=== PATIENT | female | born 1960 | race Caucasian/White ===

== ENCOUNTER 2020-07-10 13:28 | Emergency (ER) | payer MEDICARE, BC, OTHER, SELFPAY ==
[2020-07-10 13:57] VITALS: BP 176/95; PULSE 99; RESP 14; TEMP 37.2; O2SAT 95; BMI 41.1
--- NOTE | 2020-07-10 14:06 | W.ED.BACK ---
HPI - Back Pain/Injury General: Chief Complaint: Back Pain/Injury Stated Complaint: URINARY PAIN Time Seen by Provider: 07/10/20 14:01 History of Present Illness: HPI Narrative: Complaint of right flank pain for the last few days. Said she been going to bathroom more often has some dysuria occasionally. Also had recent back surgery where she had plate from lumbar to thoracic T12 placed. Said this pain is similar to kidney problems she has had and also to her lumbar problems she denies any pain rating down her leg but he says he has had numbness in her leg and so she says she cannot really tell if if that is worsening or not. MD elicited complaint: back pain Pertinent past history: prior back pain and back surgery Onset (ago): day(s) Timing: constant and progressively worsening Severity: moderate Quality: sharp and aching Location: right flank Relieving factors: immobilization Associated symptoms: Reports urinary frequency; Deny abdominal pain, chills, fever(s), nausea or vomiting Review of Systems Const: Denies: fever(s), chills or body aches Eyes: Denies: change in vision or blurry vision ENMT: Denies: throat pain or nasal congestion Card: Denies: chest pain or dyspnea on exertion Resp: Denies: dyspnea, productive cough or non-productive cough GI: Denies: abdominal pain, nausea or vomiting : Reports: flank pain (Right) Musc: Denies: extremity pain Skin/Breast: Denies: rash Neuro: Denies: headache(s) Psych: Denies: anxiety or depression Jermaine/Lymph: Denies: easy bruising Physical Exam Const: COMMON NORMALS: no acute distress, average body habitus and patient oriented x3 HENMT: COMMON NORMALS: normocephalic HEAD & SCALP: normal to inspection and normocephalic FACE & SINUS: normal facial exam Eye: COMMON NORMALS: conjunctivae normal GENERAL EYE: appearance normal, both eyes and all related structures CONJUNCTIVA: Yes conjunctivae normal Neck/C-Spine: COMMON NORMALS: no JVD Chest: COMMONS NORMALS: normal inspection of the chest Resp: COMMON NORMALS: normal respiratory effort and clear to auscultation bilaterally AUSCULTATION: clear to auscultation bilaterally Cardio: COMMON NORMALS: no JVD, regular rate and regular rhythm RATE: regular rate RHYTHM: regular rhythm GI: COMMON NORMALS: Normal to inspection, nondistended, normoactive bowel sounds present Back/Pelvis: OTHER: Tenderness to the right flank right sciatic area Extremity: COMMON NORMALS: normal to inspection and full ROM Neuro: COMMON NORMALS: patient oriented x3 Course Vital Signs: Vital signs: Vital Signs Temperature 99.0 F 07/10/20 13:57 Pulse Rate 99 07/10/20 13:57 Respiratory Rate 14 07/10/20 13:57 Blood Pressure 176/95 07/10/20 13:57 Pulse Oximetry 95 07/10/20 13:57 MDM - Back Pain/Injury MDM Narrative: Medical decision making narrative: Patient had recent back surgery ran a UA in case it might of been a kidney stone or infection UA come back negative patient thinks is helping from her chronic back problems she has now with her symptoms being similar to prior problems. Patient will and try steroid to help with lumbar discomfort that she is experiencing. Patient will follow-up with her surgeon. Lab Data: Labs: Lab Results 07/10/20 Range/Units 14:36 Urine Color Yellow (Yellow) Urine Appearance Clear (CLEAR) Urine pH 7 (5-7) Ur Specific Gravit y 1.010 (1.005-1.030) Urine Protein Neg (Negative) Urine Glucose (UA) Norm (Normal) Urine Ketones Negative (Negative) Urine Blood Neg (Negative) Urine Nitrate Negative (Negative) Urine Bilirubin Neg (Negative) Urine Urobilinogen Norm (Negative) mg/dL Ur Leukocyte Divine ase Negative (Negative) Discharge Plan Discharge Patient Disposition: Home Clinical Impression: Lumbar radiculopathy Condition: Stable Prescriptions: New prednisone 20 mg tablet 20 mg PO DAILY 11 Days Qty: 11 RF: 0 Discharge Orders: Discharge Order (Routine); Ordered 07/10/20 Ordered By: Jagjit Crump Referrals: Dank oCnnors DO [Family Provider] - Discharge Diet: Usual diet Discharge Activity: Increase activity as tolerated Patient Instructions: Lumbar Radiculopathy (ED) Activity Restrictions/Additional Instructions: Follow-up with medical provider as directed. Take medications as prescribed. Return to the ER or your medical provider if condition worsens. Please read and understand discharge instructions. If any questions ask please. Follow-up with your surgeon if problems continue Coding Level of Care Code ED Mentally Retarded Teacher for John Fwd Exam Comprehensive
[2020-07-10 14:59] LABS: Add Urine Microscopic? NO
[2020-07-10 15:08] LABS: Bilirubin Urine Neg (Negative); Blood Urine Neg (Negative); Glucose Urine UA Norm (Normal); Ketones Urine Negative (Negative); Leukocyte Esterase Urine Negative (Negative); Nitrate Urine Negative (Negative); Protein Urine Neg (Negative); Urine Appearance Clear (CLEAR); Urine Color Yellow (Yellow); Urobilinogen Urine Norm (Negative); pH Urine 7 (5-7)
[2020-07-10] MEDS: predniSONE 20 mg Tablet 60 MG PO (15:27)
[2020-07-10 15:31] VITALS: BP 169/81; PULSE 94; RESP 18; O2SAT 96
[2020-07-10 15:32] VITALS: BP 169/81; PULSE 94; RESP 18; O2SAT 96
== END 2020-07-10 15:35 | disposition home or self-care (01) ==
PROVIDERS: Emergency Provider Nurse Practitioner Family; Family Provider Family Medicine
DX: M54.16 Radiculopathy, lumbar region (principal)
CPT/HCPCS: 12345; 81003; 99283; J7512

== ENCOUNTER 2021-01-24 10:29 | Outpatient (CLI) | payer MEDICARE, SELFPAY ==
--- NOTE | 2021-01-24 10:33 | MM_ITS ---
WS: [id number] BILATERAL DIGITAL SCREENING MAMMOGRAPHY WITH CAD CLINICAL INFORMATION: SCREENING HISTORY: Screening mammogram. No current complaints. COMPARISON: TECHNIQUE: Bilateral CC and MLO views. FINDINGS: Scattered fibroglandular densities bilaterally. No suspicious focal mass, asymmetry, calcifications, or architectural distortion. No evidence of malignancy. Punctate and lucent centered calcifications. MM/[place] [id number] IMPRESSION: BI-RADS: 2-Benign FOLLOW UP: 1 Year Follow-up Recommend return to annual screening mammography.
== END 2021-01-24 10:30 | disposition home or self-care (01) ==
LOC: RADSHAW 10:32
PROVIDERS: Family Provider Family Medicine; PCP Family Medicine; Visit Provider Family Medicine
DX: Z12.31 Encounter for screening mammogram for malignant neoplasm of breast (principal)
CPT/HCPCS: 77067

== ENCOUNTER 2021-09-26 13:03 | Outpatient (CLI) | payer MEDICARE, SELFPAY ==
--- NOTE | 2021-09-26 13:08 | XR_ITS ---
WS: [id number] Abdomen series: PA CHEST AND 2 VIEWS OF THE ABDOMEN HISTORY: DYSURIA COMPARISON: None available. Lungs are clear and well aerated. Heart size is normal. No free air beneath the diaphragm. Mild diffuse fecal retention and constipation. No obstruction. No free air. Round calcifications in t he RIGHT upper abdomen are probably gallstones. There is fusion hardware at the thoracolumbar spine. Fusion at the thoracolumbar junction is new sinc e 06/04/2018. No hardware fractures are identified. Severe narrowing of the LEFT hip joint with subchon dral cystic changes and hypertrophic bone formation. XR/XR acute abdomen series [id number] IMPRESSION: 1. No GI tract obstruction. 2. Mild diffuse constipation. 3. Cholelithiasis. 4. Prior fusion hardware throughout the thoracolumbar spine. 5. Severe LEFT hip joint osteoarthritis.
== END 2021-09-26 13:04 | disposition home or self-care (01) ==
PROVIDERS: PCP Family Medicine; Visit Provider Clinical Nurse Specialist Adult Health
DX: R30.0 Dysuria (principal); K59.00 Constipation, unspecified; K80.20 Calculus of gallbladder without cholecystitis without obstruction; M16.12 Unilateral primary osteoarthritis, left hip
CPT/HCPCS: 74022

== ENCOUNTER → 2021-12-12 11:20 | Outpatient (BNVA) | payer MEDICARE, SELFPAY | PROVIDERS: PCP Family Medicine; Visit Provider Nurse Practitioner Family | DX: N39.41 Urge incontinence (principal); N39.0 Urinary tract infection, site not specified | CPT/HCPCS: 81003; 87086 ==

== ENCOUNTER → 2022-01-09 09:48 | Outpatient (BNVA) | payer MEDICARE, SELFPAY | PROVIDERS: PCP Family Medicine; Referring Provider Family Medicine; Visit Provider Specialist | DX: M16.0 Bilateral primary osteoarthritis of hip (principal) | CPT/HCPCS: 73522 ==

== ENCOUNTER → 2022-04-10 09:21 | Outpatient (BNVA) | payer MEDICARE, SELFPAY | PROVIDERS: PCP Family Medicine; Visit Provider Specialist | DX: M16.0 Bilateral primary osteoarthritis of hip (principal); E66.01 Morbid (severe) obesity due to excess calories; Z68.41 Body mass index [BMI] 40.0-44.9, adult; M25.552 Pain in left hip | CPT/HCPCS: 99213 ==

== ENCOUNTER → 2022-06-13 13:15 | Outpatient (BNVA) | payer MEDICARE, SELFPAY | PROVIDERS: PCP Family Medicine; Visit Provider Urology | DX: N39.0 Urinary tract infection, site not specified (principal); R32 Unspecified urinary incontinence; Z53.9 Procedure and treatment not carried out, unspecified reason | CPT/HCPCS: 51798 ==

== ENCOUNTER 2022-06-28 07:53 | Outpatient (CLI) | payer MEDICARE, SELFPAY ==
--- NOTE | 2022-06-28 11:00 | FL_ITS ---
WS: [id number] Exam: FL barium swallow [id number] Date/Time of Exam: 06/28/2022 8:30 AM Reason For Exam: DYSPHAGIA Fluoroscopy time: 2.3 minutes # of spot films: 22 Swallowing function at the level of oropharynx was normal. There is mild extrinsic compression along the posterior margin of the cervical esophagus at the C6-7 level secondary to anterior osteophytes of the C-spine. This causes mild to moderate luminal narrowing. No intrinsic esophageal masses are seen . No sign of stricture. Normal esophageal motility was noted. No hiatal hernia or reflux. FL/FL barium swallow [id number] IMPRESSION: 1. Extrinsic compression along the posterior cervical esophagus at about the le henny of the C6-7 secondary to anterior osteophytes. This causes mild to moderate luminal narrowing. 2. No sign of intrinsic esophageal mass or stricture. Normal motility.
== END 2022-06-28 07:54 | disposition home or self-care (01) ==
PROVIDERS: PCP Family Medicine; Visit Provider Family Medicine
DX: R13.10 Dysphagia, unspecified (principal)
CPT/HCPCS: 74220

== ENCOUNTER → 2022-07-11 07:46 | Outpatient (BNVA) | payer MEDICARE, SELFPAY | PROVIDERS: PCP Family Medicine; Visit Provider Specialist | DX: G62.89 Other specified polyneuropathies (principal) | CPT/HCPCS: 95909; 95911 ==

== ENCOUNTER 2022-08-05 06:54 | Outpatient (CLI) | payer MEDICARE, SELFPAY ==
--- NOTE | 2022-08-05 | NM_ITS ---
WS: [id number] THREE-PHASE BONE SCAN HISTORY: BONE PAIN, chronic LEFT hip pain. COMPARISON: Radiographs 08/05/2022 Patient is is injected with 25.6 mCi Tc99m HDP intravenously. Immediate angiographic phase imaging is performed over the area of concern. Static blood pool imaging also performed. Two-hour whole-body sc intigrams performed in anterior and posterior projections. Additional large field of view imaging sub mitted as necessary. 3 phase bone scan is centered over the pelvis. Angiographic and blood pool phases are normal. There i s no increased uptake or vascularity involving the LEFT hip. On the delayed images there is moderate increased uptake involving the LEFT femoral head and acetabul um. Joint space narrowing with increased uptake involving the RIGHT knee. Photopenic defect at the LEFT k nee from prior arthroplasty. Very small amount of periprosthetic increased uptake at the LEFT knee. N o loosening was evident on the radiograph of 09/15/2018. No LEFT knee pain was provided as history. T horacolumbar scoliosis. Mild facet joint arthritis along the RIGHT curvature of the lumbar spine near L3. Normal soft tissue uptake. Kidneys are both identified. NM/NM bone 3 phase [id number] IMPRESSION: 1. No evidence for osteomyelitis involving the LEFT hip. Increased delayed upt naomi most consistent with advanced osteoarthritis. This is concordant with the r adiographs that were also obtained of the hip on the same day. Severe LEFT hip osteoarthritis. 2. Mild RIGHT knee osteoarthritis. 3. Prior prosthesis LEFT knee. Very slight increased uptake around the LEFT kn ee prosthesis. May be early changes of loosening. No history of knee pain was p rovided.
--- NOTE | 2022-08-05 | XR_ITS ---
WS: [id number] Pelvis and LEFT HIP HISTORY: PAIN IN LEFT HIP. Radiographs performed in conjunction with the bone scan performed on the day. COMPARISON: 01/09/2022 LEFT hip: Severe LEFT hip joint arthritis. Complete loss of the joint space. Remodeling with flatteni ng of the LEFT femoral head. There are subchondral cystic changes on both sides of the joint space. H ypertrophic osteophytes from the acetabulum. Similar findings at the RIGHT hip joint but to a much lesser extent. Fusion hardware in the lower lum bar spine. Mild SI joint arthritis. XR/XR hip LT 2-3V wo/w pel* [id number] IMPRESSION: 1. Severe LEFT hip joint osteoarthritis with complete loss of joint space and remodeling. 2. No fracture.
== END 2022-08-05 06:55 | disposition home or self-care (01) ==
LOC: RAD 06:56
PROVIDERS: PCP Family Medicine; Visit Provider Specialist
DX: M16.0 Bilateral primary osteoarthritis of hip (principal); M17.11 Unilateral primary osteoarthritis, right knee; Z96.652 Presence of left artificial knee joint
CPT/HCPCS: 73502; 78315; A9561

== ENCOUNTER → 2022-10-01 14:24 | Outpatient (BNVA) | payer MEDICARE, SELFPAY | PROVIDERS: PCP Family Medicine; Visit Provider Nurse Practitioner Family | DX: M16.0 Bilateral primary osteoarthritis of hip; E66.01 Morbid (severe) obesity due to excess calories; Z68.41 Body mass index [BMI] 40.0-44.9, adult | CPT/HCPCS: 99214 ==

== ENCOUNTER → 2023-05-15 10:22 | Outpatient (BNVA) | payer MEDICARE, SELFPAY | PROVIDERS: PCP Family Medicine; Visit Provider Family Medicine | DX: E11.9 Type 2 diabetes mellitus without complications (principal); E78.5 Hyperlipidemia, unspecified; M16.0 Bilateral primary osteoarthritis of hip; E66.01 Morbid (severe) obesity due to excess calories; Z68.35 Body mass index [BMI] 35.0-35.9, adult; N39.0 Urinary tract infection, site not specified; Z13.6 Encounter for screening for cardiovascular disorders | CPT/HCPCS: 80053; 80061; 81000; 82607; 83036; 85025 ==

== ENCOUNTER 2023-08-12 06:00 | Outpatient (RCR) | payer MEDICARE, SELFPAY | END 2023-08-26 23:59 | disposition home or self-care (01) | LOC: SPT 06:00 | PROVIDERS: PCP Family Medicine; Visit Provider Nurse Practitioner Adult Health | DX: Z96.642 Presence of left artificial hip joint (principal) | CPT/HCPCS: 97110; 97162 ==

== ENCOUNTER 2023-08-27 06:00 | Outpatient (RCR) | payer MEDICARE, SELFPAY | END 2023-09-25 23:59 | disposition home or self-care (01) | LOC: SPT 06:00 | PROVIDERS: PCP Family Medicine; Visit Provider Nurse Practitioner Adult Health | DX: Z47.1 Aftercare following joint replacement surgery (principal); Z96.642 Presence of left artificial hip joint | CPT/HCPCS: 97110 ==

== ENCOUNTER → 2023-10-07 09:53 | Outpatient (BNVA) | payer MEDICARE, SELFPAY | PROVIDERS: PCP Family Medicine; Visit Provider Family Medicine | DX: E55.9 Vitamin D deficiency, unspecified (principal); D64.9 Anemia, unspecified; M54.9 Dorsalgia, unspecified; G89.29 Other chronic pain; E11.9 Type 2 diabetes mellitus without complications; N95.1 Menopausal and female climacteric states | CPT/HCPCS: 80053; 80061; 82607; 82652; 83036; 85025 ==

== ENCOUNTER 2023-10-16 21:37 | Observation (INO) | payer MEDICARE, SELFPAY ==
[2023-10-16 21:40] VITALS: BP 169/103; PULSE 111; RESP 17; TEMP 36.6; O2SAT 94
[2023-10-16 21:48] VITALS: BP 153/126; PULSE 114
--- NOTE | 2023-10-16 21:49 | XRR_ITS ---
PROCEDURE INFORMATION: Exam: XR Chest Exam date and time: 10/16/2023 10:26 PM Age: 63 years old Clinical indication: Cough and fever; Additional info: Cough fever TECHNIQUE: Imaging protocol: Radiologic exam of the chest. Views: 1 view. COMPARISON: CR XR acute abdomen series [id number] 09/26/2021 1:13 PM FINDINGS: Lungs: There are diffuse increased interstitial opacities present hemithoraces bilaterally, findings suggesting bilateral interstitial pneumonia. Pleural spaces: Unremarkable. No pleural effusion. No pneumothorax. Heart/Mediastinum: Unremarkable. No cardiomegaly. Bones/joints: Unremarkable. XR/XR chest 1V portable [id number] IMPRESSION: Increased interstitial opacities present bilaterally with a diffuse bilateral interstitial pneumonia.
--- NOTE | 2023-10-16 21:51 | ED_ITS ---
HPI - SOB/Dyspnea 2 General: Chief Complaint: Shortness of Breath/Dyspnea Stated Complaint: sob, temp pain when inhale Time Seen by Provider: 10/16/23 21:43 History of Present Illness: HPI Narrative: 63-year-old female comes in today with s hortness of breath after 1 week of illness. Patient reports some pain with inspiration. Patient appears unwell. Patient denies any chronic medical problems except for recent hip surgery. Patient has been on metformin before in the past for prediabetes, fluticasone nasal spray for allergic rhinitis, medications for GERD. Patient denies alcohol, smoking, marijuana, or other drugs. Recurrent UTI ? Hyperlipidemia ? Type 2 diabetes mellitus ? Chronic back pain ? Surgical History Status post left knee replacement ? History of back surgery Most recent in 2019. Reports multiple back surgeries ? S/P laparoscopic assisted vaginal hysterectomy (LAVH) With bladder tie up . Performed by Dr. Scott at [facility] in [place], [place] ~1991 Associated symptoms: Deny chest pain, nausea or vomiting Review of Systems 2 General: Reports: 10 or more systems reviewed and unremarkable except in HPI and below Const: Reports: body aches ENMT: Denies: throat pain Card: Denies: chest pain Resp: Reports: dyspnea GI: Denies: nausea, vomiting, diarrhea or constipation PFSH ED 2 PFSH: Medical History Chronic back pain Hyperlipidemia Recurrent UTI Type 2 diabetes mellitus Yeast vaginitis Surgical History History of back surgery Most recent in 2019. Reports multiple back surgeries S/P laparoscopic assisted vaginal hysterectomy (LAVH) (~1991) With bladder tie up . Performed by Dr. Scott at [facility] in [place], [place]. Status post left knee replacement Family History Father , AT AGE 48 CAD (coronary artery disease) Heart disease Mother , AT AGE 48 Cancer Lymphatic cancer Social History Smoking and tobacco/nicotine status: never used tobacco/nicotine Alcohol intake: current Alcohol intake frequency: holidays/special occasions only Substance/Drug Use: never Marital status: Current occupational status: retired Physical Exam 2 Const: COMMON NORMALS: alert HENMT: COMMON NORMALS: normocephalic HEAD & SCALP: normocephalic Neck/C-Spine: COMMON NORMALS: full ROM Resp: COMMON NORMALS: normal respiratory effort and clear to auscultation bilaterally EFFORT & INSPECTION: Yes able to speak in complete sentences and Yes tachypneic AUSCULTATION: clear to auscultation bilaterally Cardio: RATE: tachycardic GI: COMMON NORMALS: Soft to palpation AUSCULTATION: Yes normoactive bowel sounds PALPATION: Yes Soft to palpation Extremity: COMMON NORMALS: no pedal edema Neuro: SENSORIUM/ORIENTATION: Yes alert Skin: COMMON NORMALS: turgor normal GENERAL SKIN EXAM: turgor normal Course 2 ED course: 2254, ABG noted pulse oxygen level 64, c hest x-ray showed pulmonary edema, reviewed with Dr. Dsouza. Patient was ordered furosemide 40 mg, 1 inch Nitropaste, and 162 of baby aspirin. Patient was also given 1 mg of midazolam for anxiety. 2345, patient had no urine output at this time repeated 40 of Lasix and 1 more milligram of midazolam due to persistent anxiety. CTA ordered due to elevated D-dimer. First troponin was 27. 0022, CTA notes pulmonary edema. No PE. Patient had 300 out, respirations are improved. Discussed patient with Dr. Marquis who agreed to admit patient for new onset CHF. Discussed with Dr. Dsouza who agreed with plan. Vital Signs: Vital signs: Vital Signs Temperature 97.8 F 10/16/23 21:40 Pulse Rate 113 H 10/17/23 00:10 Respiratory Rate 22 H 10/17/23 00:03 Blood Pressure 178/117 10/16/23 23:17 Pulse Oximetry 94 10/17/23 00:03 Oxygen Delivery Me thod Nasal Cannula 10/17/23 00:03 Oxygen Flow Rate 3 10/17/23 00:03 MDM - SOB/Dyspnea Medical Decision Making Patient came in tonight for increasing shortness of breath x 5 days. Patient was unable to get her breath this evening. On exam patient has some decreased breath sounds in the bases. Skin was warm and dry. Blood pressure was elevated. Pulse rate was elevated. Patient was afebrile. Differential diagnosis includes not limited to pneumonia, CHF, ACS, pulmonary embolism. Patient reported no cardiac or lung history. Review of the record indicated notes no such significant history. Patient reports her father did have congestive heart failure. Chest x-ray noted interstitial abnormalities suggestive of bilateral interstitial pneumonia. My review thought more pulmonary edema. CBC was normal. CMP unremarkable. Baseline troponin was 27. BNP was 6500. D-dimer was 2.55. CTA was performed and noted no pulmonary emboli and increased pulmonary vascular suggesting pulmonary edema. Patient was medicated with a total of 80 mg of furosemide, 2 mg of midazolam, 5 mg of Toprol, and Nitro-Bid paste. Patient improvement of symptoms, patient had 300 mL of urine out, patient has improvement in respirations and distress. Consulted Dr. Mims agreed to admission for new onset CHF. Reviewed with Dr. Dsouza who agreed to plan. Lab Data 10/16/23 22:17 10/16/23 22:17 Labs/Radiology: Radiology Impressions Chest X-Ray 10/16/23 21:49 IMPRESSION: Increased interstitial opacities present bilaterally with a diffuse bilateral interstitial pneumonia. Chest CTA 10/16/23 23:03 IMPRESSION: 1. There is no evidence for pulmonary emboli. 2. Mild prominence of the pulmonary vasculature, patchy ground-glass opacities and increased septal markings present hemithoraces, findings suggesting pulmonary edema. 3. Small right pleural effusion 4. Gallstones Laboratory Results WBC 8.71 10^3/uL (3.29-11.43) 10/16/23 22:17 RBC 5.72 10^6/uL (3.85-5.65) H 10/16/23 22:17 Hgb 11.80 g/dL (11.27-16.99) 10/16/23 22:17 Hct 42.0 % (36-47) 10/16/23 22:17 MCV 73.4 fl (85-98) L 10/16/23 22:17 MCH 20.6 pg (27-33) L 10/16/23 22:17 MCHC 28.1 g/dL (30-55) L 10/16/23 22:17 RDW 20.0 % (12.1-15.1) H 10/16/23 22:17 Plt Count 390 10^3/cmm (157-399) 10/16/23 22:17 MPV 9.6 fL (7.4-10.4) 10/16/23 22:17 Neut % (Auto) 76.8 % 10/16/23 22:17 Lymph % (Auto) 15.3 % 10/16/23 22:17 [place] % (Auto) 6.7 % 10/16/23 22:17 Eos % (Auto) 0.3 % 10/16/23 22:17 Baso % (Auto) 0.6 % 10/16/23 22:17 Neut # (Auto) 6.69 10^3/uL (1.8-7.7) 10/16/23 22:17 Lymph # (Auto) 1.3 10^3/uL (0.8-4.8) 10/16/23 22:17 [place] # (Auto) 0.6 10^3/uL (0.2-0.9) 10/16/23 22:17 Eos # (Auto) 0.0 10^3/uL (0.0-0.8) 10/16/23 22:17 Baso # (Auto) 0.1 10^3/uL (0.0-0.1) 10/16/23 22:17 Nucleated RBC % (auto) 0.3 % 10/16/23 22:17 Nucleated RBCs # 0.0 /100WBC 10/16/23 22:17 D-Dimer 2.55 ug/mLFEU (0-0.59) H 10/16/23 22:17 Specimen Type Arterial 10/16/23 22:31 Sample Site Radial, right 10/16/23 22:31 ABG pH 7.45 (7.35-7.45) 10/16/23 22:31 ABG pCO2 35.6 mmHg (35-45) 10/16/23 22:31 ABG pO2 64.9 mmHg (80.0-100.0) L 10/16/23 22:31 ABG HCO3 24.4 mmol/L (22-26) 10/16/23 22:31 ABG Base Excess 0.6 mmol/L (-2.0-2.0) 10/16/23 22:31 Leif Test Pos 10/16/23 22:31 Hematocrit 36.6 % (37-47) L 10/16/23 22:31 O2 Delivery Device Room air 10/16/23 22:31 Exercise Scientist ID [email or web address] 10/16/23 22:31 Sodium 139 mmol/L (136-145) 10/16/23 22:17 Potassium 4.4 mmol/L (3.5-5.1) 10/16/23 22:17 Chloride 102 mmol/L (98-107) 10/16/23 22:17 Carbon Dioxide 24 mmol/L (22-29) 10/16/23 22:17 Anion Gap 17.4 (5-19) 10/16/23 22:17 BUN 9 mg/dL (8-23) 10/16/23 22:17 Creatinine 0.6 mg/dL (0.5-0.9) 10/16/23 22:17 GFR Calculation 101.0 mL/min (90-130) 10/16/23 22:17 Glucose 162 mg/dL (65-115) H 10/16/23 22:17 Calculated Osmolality 290 mOsm/kg (285-295) 10/16/23 22:17 Calcium 9.5 mg/dL (8.5-10.5) 10/16/23 22:17 Total Bilirubin 0.8 mg/dL (0.15-1.2) 10/16/23 22:17 AST 18 U/L (0-32) 10/16/23 22:17 ALT 15 U/L (0-33) 10/16/23 22:17 Alkaline Phosphatase 115 U/L (35-105) H 10/16/23 22:17 Troponin T Baseline 27 ng/L (0-10) H 10/16/23 22:17 C-Reactive Protein 49.6 mg/L (0.0-4.9) H 10/16/23 22:17 NT-Pro-B Natriuret Pep 6561 pg/mL (0-125) H 10/16/23 22:17 Total Protein 7.0 g/dL (6.6-8.7) 10/16/23 22:17 Albumin 4.3 g/dL (3.5-5.2) 10/16/23 22:17 Globulin 2.7 g/dL (1.3-4.6) 10/16/23 22:17 Influenza Type A Ag negative (Negative) 10/16/23 22:12 Influenza Type B Ag negative (Negative) 10/16/23 22:12 SARS-CoV-2 Ag (Rapid) negative (Negative) 10/16/23 22:12 All radiology interpretation(s) finalized by discharge ED provider radiology interpretation(s): Chest x-ray shows pulmonary edema reviewed with Dr. Dsouza EKG Data EKG 1: EKG Interpretation Date: 10/16/23 EKG interpretation time: 22:50 Prior EKG tracings: not available for review Interpretation: EKG shows a sinus rhythm with a regular rate at 108 bpm. Occasional PAC is noted, no ST elevation is noted. No prior exam was available for comparison. Computer Generated Interpretation: Sinus tachycardia with occasional supraventricular premature complexes, low QRS voltage in precordial leads, abnormal rhythm EKG, unconfirmed report. Discharge Plan Discharge Patient Disposition: Admitted As Inpatient Clinical Impression: Congestive heart failure Qualifiers: Heart failure type: unspecified Heart failure chronicity: acute Qualified Code(s): I50.9 - Heart failure, unspecified Condition: Stable Coding Level of Care Code ED Ocean Lifeguard Specialist for John Louie
[2023-10-16 22:29] LABS: Basophils # 0.1 10^3/uL (0.0-0.1); Basophils % 0.6 %; Eosinophils % 0.3 %; Lymphocytes # 1.3 10^3/uL (0.8-4.8); Lymphocytes % 15.3 %; Mean Corpuscular HGB Conc 28.1 g/dL (30-55); Mean Corpuscular Hemoglobin 20.6 pg (27-33); Mean Corpuscular Volume 73.4 fl (85-98); Mean Platelet Volume 9.6 fL (7.4-10.4); Monocytes # 0.6 10^3/uL (0.2-0.9); Monocytes % 6.7 %; Neutrophils # 6.69 10^3/uL (1.8-7.7); Neutrophils % 76.8 %; Nucleated Red Blood Cells % 0.3 %; Platelet Count 390 10^3/cmm (157-399); Red Blood Count 5.72 10^6/uL (3.85-5.65); White Blood Count 8.71 10^3/uL (3.29-11.43)
--- NOTE | 2023-10-16 22:40 | ECG_ITS ---
[facility] Test Date: 2023-10-16 Pat Name: Jer Lacey Department: Room: Gender: Female Hvac Mechanic: : 1960 Requested By: Terrance Conn Order Number: [id number] [place] MD: Jesus Henley M.D. Measurements Intervals [place] Rate: 108 P: 66 FL: 152 QRS: 54 QRSD: 94 T: 69 QT: 363 QTc: 487 Interpretive Statements SINUS TACHYCARDIA WITH OCCASIONAL SUPRAVENTRICULAR PREMATURE COMPLEXES LOW QRS VOLTAGE IN PRECORDIAL LEADS [QRS DEFLECTION < 1.0 mV IN CHEST LEADS] ABNORMAL RHYTHM ECG Compared to ECG 08/27/2017 09:16:33 Low QRS voltage now present Sinus rhythm no longer present Electronically Signed On 10-17-2023 19:23:11 CHIEF SCHOOL FINANCE OFFICER by Jesus Henley M.D. [id number]
[2023-10-16 22:41] LABS: ABG PCO2 35.6 mmHg (35-45); ABG PH Result 7.45 (7.35-7.45); Arterial Blood Gas Hematocrit 36.6 % (37-47); Base Excess ABG 0.6 mmol/L (-2.0-2.0); Blood Gas Allen Test Pos; Blood Gas Sample Site Radial, right; Blood Gas Sample Type Arterial; HCO3 ABG 24.4 mmol/L (22-26); Oxygen Device ROOM AIR; PO2 ABG 64.9 mmHg (80.0-100.0)
[2023-10-16 22:50] LABS: Troponin(5th) Baseline 27 ng/L (0-10)
[2023-10-16 22:57] LABS: D Dimer 2.55 ug/mLFEU (0-0.59)
[2023-10-16 23:00] LABS: Alanine Aminotransferase 15 U/L (0-33); Albumin Level 4.3 g/dL (3.5-5.2); Alkaline Phosphatase 115 U/L (35-105); Anion Gap 17.4 (5-19); Aspartate Amino Transferase 18 U/L (0-32); Blood Urea Nitrogen 9 mg/dL (8-23); C Reactive Protein 49.6 mg/L (0.0-4.9); Calcium 9.5 mg/dL (8.5-10.5); Carbon Dioxide 24 mmol/L (22-29); Chloride 102 mmol/L (98-107); Globulin 2.7 g/dL (1.3-4.6); Glucose 162 mg/dL (65-115); NT Pro B Type Natriuretic Pept 6561 pg/mL (0-125); Osmolality Calculated 290 mOsm/kg (285-295); Potassium 4.4 mmol/L (3.5-5.1); Sodium 139 mmol/L (136-145); Total Bilirubin 0.8 mg/dL (0.15-1.2)
--- NOTE | 2023-10-16 23:03 | CTR_ITS ---
PROCEDURE INFORMATION: Exam: CTA Chest With Contrast Exam date and time: 10/16/2023 11:36 PM Age: 63 years old Clinical indication: Abnormal findings; Other: Payal dimer; Shortness of breath; Additional info: Dyspnea, elevated d dimer TECHNIQUE: Imaging protocol: Computed tomographic angiography of the chest with contrast. Exam focused on the arteries. 3D rendering (Not supervised by radiologist): MIP and/or 3D reconstructed images were created by the technologist. Radiation optimization: All CT scans at this facility use at least one of these dose optimization techniques: automated exposure control; mA and/or kV adjustment per patient size (includes targeted exams where dose is matched to clinical indication); or iterative reconstruction. Contrast material: OMNI 350; Contrast volume: 80 ml; Contrast route: INTRAVENOUS (IV); REPORTING DATA: Count of CT and Cardiac NM exams in prior 12 months: This patient has received 0 known CTs and 0 known cardiac nuclear medicine studies in the 12 months prior to the current study. COMPARISON: CR (CHEST, ) 10/16/2023 10:26 PM RADIATION DOSE METRICS: Total DLP (mGy-cm): 696.83 FINDINGS: Pulmonary arteries: There is mild prominence of the pulmonary vasculature, some patchy ground-glass opacities and increased septal markings present in the jin thoraces, findings that suggest pulmonary edema. Aorta: Unremarkable. No aortic aneurysm. No aortic dissection. Lungs: See Pulmonary arteries finding. Pleural spaces: There is a small right pleural effusion. Heart: Unremarkable. No cardiomegaly. No pericardial effusion. Coronary arteries: There are no coronary artery calcifications. Lymph nodes: Unremarkable. No enlarged lymph nodes. Gallbladder and bile ducts: There are multiple gallstones present. Bones/joints: Unremarkable. No acute fracture. Soft tissues: Unremarkable. CT/CT angio chest PE protcl [id number] IMPRESSION: 1. There is no evidence for pulmonary emboli. 2. Mild prominence of the pulmonary vasculature, patchy ground-glass opacities and increased septal markings present hemithoraces, findings suggesting pulmonary edema. 3. Small right pleural effusion 4. Gallstones
[2023-10-16 23:04] LABS: Influenza A by IFA negative (Negative); Influenza B by IFA negative (Negative); SARS Covid-2 Antigen negative (Negative)
[2023-10-16] MEDS: aspirin 81 mg Chew Tablet 162 MG PO (23:09)
[2023-10-16] MEDS: midazolam 1 mg/mL INJ 2 mL IVP (23:14)
[2023-10-16] MEDS: FUROsemide 10 mg/mL SDV 4mL 40 MG IVP (23:14)
[2023-10-16 23:17] VITALS: BP 178/117; PULSE 119
[2023-10-16] MEDS: nitroglycerin 1 gm/inch oint Pkt 1 INCH TOPICAL (23:17)
[2023-10-16 23:18] VITALS: BP 178/117; PULSE 116; O2SAT 92
[2023-10-16] MEDS: iohexol 350 mg/mL 500 mL Btl (per mL) IV (23:49)
[2023-10-17] VITALS (13 sets, daily range): BP systolic 138–159; BP diastolic 77–121; PULSE 96–118; RESP 17–30; TEMP 36.4–36.6; O2SAT 94–99
[2023-10-17] MEDS: ipratropium-albuterol 3 mL Neb INHALATION (00:03)
[2023-10-17] MEDS: midazolam 1 mg/mL INJ 2 mL IVP (00:14)
[2023-10-17] MEDS: FUROsemide 10 mg/mL SDV 4mL 40 MG IVP (00:15)
[2023-10-17] MEDS: metoprolol tartrate 1 mg/1 mL SDV 5 mL 5 MG IVP (00:19)
--- NOTE | 2023-10-17 00:23 | P.HP_ITS ---
Providers/Chief Complaint 2 Primary Care Provider: Dank Connors DO Chief Complaint: sob, temp pain when inhale History of Present Illness Jer Lacey is a 63 year old female does not have any history of hypertension or CHF presented with chief complaint orthopnea and PND. Patient is stating that her for her symptoms started few weeks ago when she started using more than 3 pillows, she started sleeping in a recliner, she does not have any history of congestive heart failure coronary disease or hypertension. She does snore a lot. She has not noticed any fever, chest pain, diarrhea, COVID-related symptoms. Because of worsening of her symptoms she decided to come to the hospital. In the ER she has been diagnosed new onset congestive heart failure received Lasix with good output, her tachypnea tachycardia improved after getting Versed for anxiety. Increase D-dimer, CT did not show PE it is consistent with pulmonary edema She will receive 80 mg of Lasix She is hypertensive blood pressure is 178/170 mmHg Nitroglycerin 1 inch has been applied Review of Systems 2 Const: Denies: fever(s) Eyes: Denies: change in vision ENMT: Denies: throat pain Card: Reports: swelling of feet/ankles; Denies: chest pain Resp: Reports: dyspnea GI: Denies: abdominal pain : Denies: flank pain Musc: Denies: neck pain Skin/Breast: Denies: rash Neuro: Denies: headache(s) Medications/Allergies Home Medications Medication Instructions Recorded Confirmed Last Taken Type calcium carbonate 600 mg-vitamin cap PO BID 10/05/20 10/07/23 Unknown History D3 5 mcg (200 unit) capsule (Calcium 600 + D(3)) famotidine 20 mg tablet 20 mg PO BID 12/12/21 10/07/23 Unknown History fluconazole 150 mg tablet 150 mg PO Q3D #2 tabs 12/12/21 10/07/23 Unknown Rx fluticasone propionate 50 1 spray intranasal DAILY PRN 12/12/21 10/07/23 Unknown History mcg/actuation nasal spray,suspension (Allergy Relief (fluticasone)) atorvastatin 20 mg tablet tab PO 05/08/22 10/07/23 Unknown History aspirin-caffeine 500 mg-32.5 mg tab PO 07/11/22 10/07/23 Unknown History tablet (Back and Body Pain Reliever) metformin 500 mg tablet 500 mg PO BID for DM #180 tabs 10/14/22 10/07/23 Unknown Rx knee brace, hinged #1 ea 05/21/23 10/07/23 Unknown Rx gabapentin 800 mg tablet 800 mg PO TID neuropathic pain 30 08/26/23 10/07/23 Unknown Rx days #90 tabs duloxetine 60 mg capsule,delayed 60 mg PO BID #180 caps 09/22/23 10/07/23 Unknown Rx release hydrocodone 10 mg-acetaminophen 1 tab PO Q8H PRN pain 1 month #90 10/01/23 10/07/23 Unknown Rx 325 mg tablet tabs amoxicillin 875 mg-potassium 1 tab PO BID #20 tabs 10/07/23 10/07/23 Unknown Rx clavulanate 125 mg tablet estradiol 0.5 mg tablet 0.5 mg PO DAILY #30 tabs 10/07/23 10/07/23 Unknown Rx Allergies Allergy/AdvReac Type Severity Reaction Status Date / Time Latex, Natural Rubber Allergy ALGY-Redness Verified 10/16/23 21:49 of Skin Sulfa (Sulfonamide Allergy ALGY-Redness Verified 10/16/23 21:49 Antibiotics) of Skin clindamycin Allergy Intermediate hives Uncoded 10/16/23 21:49 PFSH Acute 2 PFSH: Medical History Yeast vaginitis Recurrent UTI Hyperlipidemia Type 2 diabetes mellitus Chronic back pain Surgical History Status post left knee replacement History of back surgery Most recent in 2019. Reports multiple back surgeries S/P laparoscopic assisted vaginal hysterectomy (LAVH) (~1991) With bladder tie up . Performed by Dr. Scott at [facility] in [place], [place]. Family History Father , AT AGE 48 CAD (coronary artery disease) Heart disease Mother , AT AGE 48 Cancer Lymphatic cancer Social History Smoking and tobacco/nicotine status: never used tobacco/nicotine Alcohol intake: current Alcohol intake frequency: holidays/special occasions only Substance/Drug Use: never Marital status: Current occupational status: retired Vitals/I&O/Wt Last Vital Signs Temp 97.8 F 10/16/23 21:40 Pulse 113 H 10/17/23 00:10 Resp 22 H 10/17/23 00:03 BP 178/117 10/16/23 23:17 Pulse Ox 94 10/17/23 00:03 O2 Del Method Nasal Cannula 10/17/23 00:03 O2 Flow Rate 3 10/17/23 00:03 Weight last 48 hrs Weight 109.769 kg Physical Exam 2 Narrative: Pleasant and cooperative Acute on the heart failure GCS 15 S1, S2 Abdomen soft Lower extremity edema Pleasant and cooperative Currently on 3 L Heart rate in 70s Hypertensive is at the bedside Data 10/16/23 22:17 10/16/23 22:17 A&P Assessment and plan (1) Congestive heart failure: Qualifiers: Heart failure chronicity: acute Heart failure type: unspecified Qualified Code(s): I50.9 - Heart failure, unspecified (2) Hyperlipidemia: (3) Type 2 diabetes mellitus: (4) Severe obesity (BMI 35.0-35.9 with comorbidity): (5) Loud snoring: Plan New onset congestive heart failure EF is unknown Will request echo Patient most likely has undiagnosed sleep apnea She is also hypertensive Hypertensive emergency with endorgan damage High BNP No active chest pain Troponin trending down Started on IV Lasix Check TSH Patient most likely will need outpatient sleep study For her hypertensive emergency we have tried Nitropaste for now I will give her a dose of hydralazine 10 mg IV push She will need at least 3 antihypertensive regimen including a diuretic Full code Cardiac diet Patient is also diabetic we will use consistent carb diet along cardiac Use sliding scale with insulin check A1c level D-dimer is hide no signs of PE, it is consistent with pulmonary edema COVID-negative Self interpretation of chest x-ray: Showing pulm edema no signs of infiltrate As per the patient was sick with some viral illness which she seems to have been affected with she is not complaining of active diarrhea muscle aches or fever Attestations 2 Medical Necessity Statement*: Anticipating discharge within 48 hours Diagnoses Congestive heart failure I50.9 Heart failure chronicity: acute Heart failure type: unspecified Hyperlipidemia E78.5 Type 2 diabetes mellitus E11.9 Severe obesity (BMI 35.0-35.9 with comorbidity) E66.01; Z68.35 Loud snoring R06.83
[2023-10-17 00:36] LABS: Troponin 5 2HR 24.97 ng/L (0-10)
[2023-10-17 00:38] LABS: Troponin 5 2HR Delta -2.03 ABS# (0-10)
[2023-10-17 01:35] LABS: Amphetamines Screen Urine Negative (Negative); Barbiturates Screen Urine Negative (Negative); Benzodiazepines Screen Urine Negative (Negative); Cocaine Screen Urine Negative (Negative); Opiate Screen Urine Positive (Negative); PCP Screen Urine Negative (Negative); THC Screen Urine Negative (Negative)
--- NOTE | 2023-10-17 02:32 | USCV_ITS ---
Jer Lacey Age: 63 Gender: F : 1960 Exam Date: 10/17/2023 02:52 Ordering Phys: Ramandeep Marquis MD Technologist: MASON Exam Location: [facility] Indication: CHF. Patient denies history of cardiac intervention. BP: 156 / 100 HR: 104 Rhythm: Atrial fibrillation Technical Quality: Adequate MEASUREMENTS (Male / Female) Normal Values 2D ECHO LV Diastolic Diameter PLAX 6.4 cm 4.2 - 5.9 / 3.9 - 5.3 cm LV Systolic Diameter PLAX 5.7 cm IVS Diastolic Thickness 0.9 cm 0.6 - 1.0 / 0.6 - 0.9 cm IVS Systolic Thickness 0.8 cm LVPW Diastolic Thickness 0.9 cm 0.6 - 1.0 / 0.6 - 0.9 cm LVPW Systolic Thickness 1.2 cm LVOT Diameter 1.7 cm LV Ejection Fraction 2D Teich 24.5 % LV Ejection Fraction MOD 2C 23.7 % LV Ejection Fraction 2C AL 23.0 % LA Diameter 4.6 cm LA Width 5.2 cm LA Height 6.3 cm RA Width 3.3 cm RA Height 5.1 cm Aorta at Sinotubular Diameter 2.7 cm IVC Diameter 2.7 cm M-MODE Aortic Annulus Diameter 2.7 cm LA Ao Ratio MM 1.8 MV E Point Septal Separation 2.8 cm DOPPLER AV Peak Velocity 113.0 cm/s LVOT Peak Velocity 66.0 cm/s AV Area Cont Eq vti 1.2 cm squared AV Area Cont Eq pk 1.3 cm squared MV Area PHT 4.8 cm squared MV E' Velocity 79.0 cm/s Mitral E to MV E' Ratio 20.3 Mitral E to LV E' Lateral Ratio 19.0 Mitral E to LV E' Septal Ratio 22.1 TR Peak Velocity 316.0 cm/s TR Peak Gradient 39.9 mmHg TV Peak E Velocity 108.0 cm/s Right Atrial Pressure 15.0 mmHg Pulmonary Artery Systolic Pressu 54.9 mmHg PV Peak Velocity 66.0 cm/s RV Acceleration Time 0.2 s RV Ejection Time 0.3 s RV AcT/ET 0.5 FINDINGS Left Ventricle Severe diffuse hypokinesia of the left ventricle with ejection fraction of 24%. Mildly dilated LV cavity Technically difficult study because of the difficulty in delineating the endocardium. Right Ventricle Appears to be normal size with mild diffuse hypokinesia Right Atrium Mildly dilated Left Atrium Moderately dilated Mitral Valve Thickened mitral valve. Moderate mitral valve regurgitation. Aortic Valve Thickened aortic valve. Trace aortic valve regurgitation. Tricuspid Valve [id number] tricuspid valve regurgitation. Moderate pulmonary hypertension with an estimated pulmonary artery peak systolic pressure of 55 mmHg Pulmonic Valve No gross abnormalities noted Pericardium Normal pericardium without effusion. Aorta Normal aortic annulus size. IVC Dilated IVC with decreased respiratory variation. CONCLUSIONS Severe diffuse hypokinesia of the left ventricle with an ejection fraction of 24% (by MOD). Mildly dilated LV cavity Technically difficult study because of the difficulty in delineating the endocardium. Moderately dilated left atrium and mildly dilated right atrium. Thickened mitral valve. Moderate mitral valve regurgitation. Thickened aortic valve. Trace aortic valve regurgitation. [id number] tricuspid valve regurgitation. Moderate pulmonary hypertension with an estimated pulmonary artery peak systolic pressure of 55 mmHg. There is no pericardial effusion. There are no intracardiac masses. No similar previous studies are available for comparison Dr Jesus Henley MD [facility] (Electronically Signed) Final Date: 17 October 2023 09:33 S
[2023-10-17 03:03] LABS: Estmated Average Glucose 128; Hemoglobin A1C 6.1 % (4.0-6.0)
[2023-10-17 03:14] LABS: Thyroid Stimulating Hormone 3.43 uIU/mL (0.27-4.20)
[2023-10-17 04:52] LABS: Basophils % 0.3 %; Eosinophils % 0.1 %; Lymphocytes # 1.2 10^3/uL (0.8-4.8); Lymphocytes % 11.7 %; Mean Corpuscular HGB Conc 27.5 g/dL (30-55); Mean Corpuscular Hemoglobin 20.2 pg (27-33); Mean Corpuscular Volume 73.5 fl (85-98); Mean Platelet Volume 9.6 fL (7.4-10.4); Monocytes # 0.5 10^3/uL (0.2-0.9); Monocytes % 4.7 %; Neutrophils % 82.9 %; Nucleated Red Blood Cells % 0.2 %; Platelet Count 462 10^3/cmm (157-399); Red Blood Count 5.99 10^6/uL (3.85-5.65); Red Cell Distribution Width 19.9 % (12.1-15.1); White Blood Count 10.25 10^3/uL (3.29-11.43)
[2023-10-17 05:16] LABS: Troponin 5 6HR 30.05 ng/L (0-10); Troponin 5 6HR Delta 3.05 ng/L (0-12)
[2023-10-17 05:17] LABS: Anion Gap 17.2 (5-19); Blood Urea Nitrogen 9 mg/dL (8-23); Calcium 9.7 mg/dL (8.5-10.5); Carbon Dioxide 29 mmol/L (22-29); Chloride 98 mmol/L (98-107); Glucose 145 mg/dL (65-115); Magnesium 1.6 mg/dL (1.7-2.3); Osmolality Calculated 291 mOsm/kg (285-295); Potassium 4.2 mmol/L (3.5-5.1); Sodium 140 mmol/L (136-145)
[2023-10-17] MEDS: enoxaparin 40 mg/0.4 mL Syringe SUBCUT (05:29)
[2023-10-17] MEDS: FUROsemide 10 mg/mL SDV 10mL 60 MG IVP (05:29)
[2023-10-17 06:29] LABS: Glucose Point of Care 139 mg/dL (70-110)
--- NOTE | 2023-10-17 08:02 | P.PN_ITS ---
Vitals/I&O/Wt Last Vital Signs Temp 97.8 F 10/17/23 07:10 Pulse 104 H 10/17/23 07:10 Resp 18 10/17/23 07:10 BP 147/81 10/17/23 07:10 Pulse Ox 97 10/17/23 07:10 O2 Del Method Nasal Cannula 10/17/23 07:10 O2 Flow Rate 3 10/17/23 01:12 10/16/23 10/17/23 10/17/23 22:59 06:59 14:59 Output Total 3500 / 3500 Balance -3500 / -3500 Weight last 48 hrs Weight 113.115 kg Weight 109.769 kg Physical Exam 2 Urinary Catheter Management: Freed: Cath Placed During This Visit: no Data 10/17/23 04:17 10/17/23 04:17 Coding Level of Care Code Acute Code for Chg [email or web address]
[2023-10-17 11:34] LABS: Glucose Point of Care 165 mg/dL (70-110)
--- NOTE | 2023-10-17 12:15 | PM.MISC ---
Miscellaneous Note Note: Patient seen this morning. She is wanting to sign out AMA. I sat down and explained to the patient her current cardiac condition and that it would be a bad idea to leave the hospital. This is new onset heart failure and she is requiring oxygen and has some orthopnea. He has been having increased bilateral leg swelling for the last couple of weeks. Her father of heart disease at age 43 and had a heart attack. He definitely has risk factors. Patient understood and would like to proceed with further management in the hospital. Echo reviewed: Severe diffuse hypokinesia of the left ventricle with an ejection fraction of 24% (by MOD). Mildly dilated LV cavity Technically difficult study because of the difficulty in delineating the endocardium. Moderately dilated left atrium and mildly dilated right atrium. Thickened mitral valve. Moderate mitral valve regurgitation. Thickened aortic valve. Trace aortic valve regurgitation. [id number] tricuspid valve regurgitation. Moderate pulmonary hypertension with an estimated pulmonary artery peak systolic pressure of 55 mmHg. There is no pericardial effusion. There are no intracardiac masses. No similar previous studies are available for comparison Patient is on metformin at home. Creatinine 0.6. I will hold metformin. Patient will likely need an angiogram at this point. Will consult cardiology. Discussed with Dr. Stauffer who will see the patient in consultation. Discussed results of echo with the patient as well. She is willing to stay and have workup completed. Continue on Lasix 40 IV twice daily
--- NOTE | 2023-10-17 12:46 | P.CONIM_ITS ---
Providers/Reason For Consult 2 Consulting Physician/Specialty*: Andres Stauffer MD/ Cardiology Reason for Consult*: New onset congestive heart failure Requesting Physician: Dr Carter Attending Physician: Tamara Carter MD Primary Care Provider: Dank Connors DO History of Present Illness History of Present Illness Jer Lacey is a 63 year old female with past medical history of diabetes and family history of CAD who presented to hospital with several weeks of worsening lower extremity edema and shortness of breath. Says yesterday it was very difficult breathing. She was put on diuretic therapy. Echo showed severely reduced LV systolic function with EF of 24%. EKG showed sinus tachycardia with a heart rate of [address]-T wave changes. Her NT proBNP was over 6000. She has been diuresing well and is over and 5 L negative since yesterday. Review of Systems 2 Const: Denies: fever(s) Eyes: Denies: change in vision ENMT: Denies: throat pain Card: Reports: swelling of feet/ankles; Denies: chest pain Resp: Reports: dyspnea GI: Denies: abdominal pain : Denies: flank pain Musc: Denies: neck pain Skin/Breast: Denies: rash Neuro: Denies: headache(s) Medications/Allergies Home Medications Medication Instructions Recorded Confirmed Last Taken Type calcium carbonate 600 mg-vitamin 1 cap PO BID 10/05/20 10/17/23 10/16/23 History D3 5 mcg (200 unit) capsule (Calcium 600 + D(3)) aspirin-caffeine 500 mg-32.5 mg 1 tab PO Q6H PRN Pain 07/11/22 10/17/23 Unknown History tablet (Back and Body Pain Reliever) metformin 500 mg tablet 500 mg PO BID for DM #180 tabs 10/14/22 10/17/23 10/16/23 Rx knee brace, hinged #1 ea 05/21/23 10/17/23 Unknown Rx gabapentin 800 mg tablet 800 mg PO TID neuropathic pain 30 08/26/23 10/17/23 10/16/23 Rx days #90 tabs duloxetine 60 mg capsule,delayed 60 mg PO BID #180 caps 09/22/23 10/17/23 10/16/23 Rx release hydrocodone 10 mg-acetaminophen 1 tab PO Q8H PRN pain 1 month #90 12/04/1810/17/23 10/16/23 Rx 325 mg tablet tabs amoxicillin 875 mg-potassium 1 tab PO BID #20 tabs 10/07/23 10/17/23 10/16/23 Rx clavulanate 125 mg tablet estradiol 0.5 mg tablet 0.5 mg PO DAILY #30 tabs 10/07/23 10/17/23 10/16/23 Rx Allergies Allergy/AdvReac Type Severity Reaction Status Date / Time Latex, Natural Rubber Allergy ALGY-Redness Verified 10/16/23 21:49 of Skin Sulfa (Sulfonamide Allergy ALGY-Redness Verified 10/16/23 21:49 Antibiotics) of Skin clindamycin Allergy Intermediate hives Uncoded 10/16/23 21:49 Current Medications Generic Name Dose Route Start Last Admin Trade Name Freq PRN Reason Stop Dose Admin Enoxaparin Sodium 40 mg 10/17/23 06:00 10/17/23 05:29 Enoxaparin 40 Mg/0.4 Ml Syringe SUBCUT 40 mg Q24H TATIANA Administration PFSH Acute 2 PFSH: Medical History Yeast vaginitis Recurrent UTI Hyperlipidemia Type 2 diabetes mellitus Chronic back pain Surgical History Status post left knee replacement History of back surgery Most recent in 2019. Reports multiple back surgeries S/P laparoscopic assisted vaginal hysterectomy (LAVH) (~1991) With bladder tie up . Performed by Dr. Scott at [facility] in [place], [place]. Family History Father , AT AGE 48 CAD (coronary artery disease) Heart disease Mother , AT AGE 48 Cancer Lymphatic cancer Social History Smoking and tobacco/nicotine status: never used tobacco/nicotine Alcohol intake: current Alcohol intake frequency: holidays/special occasions only Substance/Drug Use: never Marital status: Current occupational status: retired Vitals/I&O/Wt Last Vital Signs Temp 97.8 F 10/17/23 07:10 Pulse 101 H 10/17/23 10:21 Resp 22 H 10/17/23 10:21 BP 147/81 10/17/23 07:10 Pulse Ox 99 10/17/23 10:21 O2 Del Method Nasal Cannula 10/17/23 10:21 O2 Flow Rate 2 10/17/23 10:21 10/16/23 10/17/23 10/17/23 22:59 06:59 14:59 Intake Total 480 / 480 Output Total 3500 / 3500 2400 / 2400 Balance -3500 / -3500 -1920 / -1920 Weight last 48 hrs Weight 249 lb 6 oz Weight 242 lb Physical Exam 2 Narrative: GENERAL: Patient is alert, awake and oriented x3. [] NECK: No jugular vein distension. [] HEENT: No cyanosis. No icterus. No pallor. [] HEART: Regular S1 and S2. Grade 3/6 systolic murmur LUNGS: Clear to auscultate bilaterally. [] CENTRAL NERVOUS SYSTEM: Grossly nonfocal. [] EXTREMITIES: Lower extremities with 2+ edema bilaterally. Urinary Catheter Management: Freed: Cath Placed During This Visit: no Data 10/17/23 04:17 10/17/23 04:17 A&P Assessment and plan (1) Congestive heart failure: Qualifiers: Heart failure chronicity: acute Heart failure type: unspecified Qualified Code(s): I50.9 - Heart failure, unspecified (2) Hyperlipidemia: (3) Type 2 diabetes mellitus: Plan Patient has new onset congestive heart failure. LV systolic function is severely reduced. Will continue with IV diuresis. Close I&O's. Monitor renal function. Low-sodium diet recommended Patient will need right and left heart cath for evaluation of CHF etiology and titration of medications. We will plan to perform it on Friday as she needs further diuresis prior to it. Procedure discussed in detail. Thank you for involving us with care of this patient. We will continue to follow. Please call with questions. Consult Attestations 2 Medical Necessity Statement: Care expected to cross 2 midnights. Coding Level of Care Code Acute Code for Chg Fwd Diagnoses Congestive heart failure I50.9 Heart failure chronicity: acute Heart failure type: unspecified Hyperlipidemia E78.5 Type 2 diabetes mellitus E11.9
[2023-10-17 17:07] LABS: Glucose Point of Care 150 mg/dL (70-110)
[2023-10-17] MEDS: FUROsemide 10 mg/mL SDV 10mL 40 MG IVP (17:21)
[2023-10-17 20:33] LABS: Glucose Point of Care 176 mg/dL (70-110)
[2023-10-18] VITALS (22 sets, daily range): BP systolic 138–158; BP diastolic 78–108; PULSE 78–123; RESP 9–22; TEMP 36.4–36.8; O2SAT 91–98
--- NOTE | 2023-10-18 00:30 | PC.NURSE ---
GIANNA Bourne notified this nurse that the patient stated her toes were purple. This nurse and MARIE Kelly Charge did note that the patient's feet were cool and patient's toes were dusky and purple. Patient's SCDs were applied, feet were elevated, and warm blankets were applied to feet. When rechecking patient's feet 30 minutes after interventions, patient's feet were warm and back to normal color.
[2023-10-18 05:04] LABS: Basophils % 0.4 %; Eosinophils % 0.2 %; Hematocrit 44.3 % (36-47); Lymphocytes # 1.5 10^3/uL (0.8-4.8); Lymphocytes % 17.8 %; Mean Corpuscular HGB Conc 28.2 g/dL (30-55); Mean Corpuscular Hemoglobin 20.7 pg (27-33); Mean Corpuscular Volume 73.2 fl (85-98); Mean Platelet Volume 9.7 fL (7.4-10.4); Monocytes # 0.7 10^3/uL (0.2-0.9); Monocytes % 8.5 %; Neutrophils # 6.03 10^3/uL (1.8-7.7); Neutrophils % 72.9 %; Nucleated Red Blood Cells % 0 %; Platelet Count 451 10^3/cmm (157-399); Red Blood Count 6.05 10^6/uL (3.85-5.65); Red Cell Distribution Width 20.4 % (12.1-15.1); White Blood Count 8.27 10^3/uL (3.29-11.43)
[2023-10-18 05:31] LABS: Alanine Aminotransferase 12 U/L (0-33); Albumin Level 3.9 g/dL (3.5-5.2); Alkaline Phosphatase 104 U/L (35-105); Anion Gap 16.1 (5-19); Aspartate Amino Transferase 16 U/L (0-32); Blood Urea Nitrogen 10 mg/dL (8-23); Carbon Dioxide 27 mmol/L (22-29); Chloride 98 mmol/L (98-107); Globulin 3.4 g/dL (1.3-4.6); Glucose 129 mg/dL (65-115); Magnesium 1.8 mg/dL (1.7-2.3); Osmolality Calculated 287 mOsm/kg (285-295); Potassium 3.1 mmol/L (3.5-5.1); Sodium 138 mmol/L (136-145); Total Bilirubin 1.1 mg/dL (0.15-1.2); Total Protein 7.3 g/dL (6.6-8.7)
[2023-10-18] MEDS: enoxaparin 40 mg/0.4 mL Syringe SUBCUT (05:32)
[2023-10-18] MEDS: FUROsemide 10 mg/mL SDV 10mL 40 MG IVP ×2 (05:32→17:50)
[2023-10-18 06:36] LABS: Glucose Point of Care 140 mg/dL (70-110)
--- NOTE | 2023-10-18 08:21 | P.PN_ITS ---
Subjective 2 Subjective: seen this am pt requesting angiogram today i said i would speak to cardiology however i did explain to pt that she needs further diuresis denies sob, denies cp off o2 and now on room air Vitals/I&O/Wt Last Vital Signs Temp 97.9 F 10/18/23 07:30 Pulse 95 10/18/23 08:15 Resp 16 10/18/23 08:15 BP 158/101 10/18/23 07:30 Pulse Ox 97 10/18/23 08:15 O2 Del Method Room Air 10/18/23 08:15 O2 Flow Rate 2.5 10/17/23 20:24 10/17/23 10/18/23 10/18/23 22:59 06:59 14:59 Output Total 1900 / 5000 250 / 5250 Balance -1900 / -4400 -250 / -4650 Weight last 48 hrs Weight 111.187 kg Weight 113.115 kg Weight 109.769 kg Physical Exam 2 Narrative: Pleasant and cooperative Lungs clear to auscultation pt room air now S1, S2, no mrg Abdomen soft 1+ Lower extremity edema Pleasant and cooperative Urinary Catheter Management: Freed: Cath Placed During This Visit: no Data 10/18/23 04:19 10/18/23 04:19 A&P Assessment and plan (1) Congestive heart failure: Qualifiers: Heart failure chronicity: acute Heart failure type: unspecified Qualified Code(s): I50.9 - Heart failure, unspecified (2) Hyperlipidemia: (3) Type 2 diabetes mellitus: (4) Severe obesity (BMI 35.0-35.9 with comorbidity): (5) Loud snoring: Plan New onset congestive heart failure Possible underlying sleep apnea Hypertensive emergency with end-organ damage at admission Diatebes Mellitus, controlled on metformin EF is 24% Continue IV diuresis iwth lasix 40 IV BID Recommend outpatient sleep study at discharge SSI low dose if needed, check glucose ACHS NPO midnight tonight Cath in AM Full code Consistent Cardiac diet D-dimer is hige no signs of PE, it is consistent with pulmonary edema COVID-negative Transfer to CSU Continue on telemetry Attestations 2 Medical Necessity Statement*: cath in AM Diagnoses Congestive heart failure I50.9 Heart failure chronicity: acute Heart failure type: unspecified Hyperlipidemia E78.5 Type 2 diabetes mellitus E11.9 Severe obesity (BMI 35.0-35.9 with comorbidity) E66.01; Z68.35 Loud snoring R06.83
[2023-10-18] MEDS: potassium chloride ER 20 mEq Tablet 40 MEQ PO ×2 (09:32→18:06)
--- NOTE | 2023-10-18 09:39 | PM.PN ---
Subjective Subjective: Patient is doing well. Over 9 liters negative balance Vitals/I&O/Wt Last Vital Signs Temp 97.9 F 10/18/23 07:30 Pulse 95 10/18/23 08:15 Resp 16 10/18/23 08:15 BP 158/101 10/18/23 07:30 Pulse Ox 97 10/18/23 08:15 O2 Del Method Room Air 10/18/23 08:15 O2 Flow Rate 2.5 10/17/23 20:24 10/17/23 10/18/23 10/18/23 22:59 06:59 14:59 Output Total 1900 / 5000 250 / 5250 1400 / 1400 Balance -1900 / -4400 -250 / -4650 -1400 / -1400 Weight last 48 hrs Weight 245 lb 2 oz Weight 249 lb 6 oz Weight 242 lb Physical Exam Narrative: GENERAL: Patient is alert, awake and oriented x3. [] NECK: No jugular vein distension. [] HEENT: No cyanosis. No icterus. No pallor. [] HEART: Regular S1 and S2. Grade 3/6 systolic murmur LUNGS: Clear to auscultate bilaterally. [] CENTRAL NERVOUS SYSTEM: Grossly nonfocal. [] EXTREMITIES: Lower extremities with 2+ edema bilaterally. Urinary Catheter Management: Freed: Cath Placed During This Visit: no Data 10/19/23 03:27 10/19/23 03:27 A&P Assessment and plan (1) Congestive heart failure: Qualifiers: Heart failure chronicity: acute Heart failure type: unspecified Qualified Code(s): I50.9 - Heart failure, unspecified (2) Hyperlipidemia: (3) Type 2 diabetes mellitus: Plan Plan for coronary angiogram and right heart cath tomorrow. Continue IV diuresis. We have added losartan. Blood pressure is elevated. Will add beta-char prior to discharge. Close I&O's. Monitor renal function. Thank you for involving us with care of this patient. We will continue to follow. Please call with questions. Attestations Medical Necessity Statement*: Care expected to cross 2 midnights. Coding Level of Care Code Acute Code for [facility] Fwd Diagnoses Congestive heart failure I50.9 Heart failure chronicity: acute Heart failure type: unspecified Hyperlipidemia E78.5 Type 2 diabetes mellitus E11.9
[2023-10-18 11:24] LABS: Glucose Point of Care 141 mg/dL (70-110)
[2023-10-18] MEDS: losartan 50 mg Tablet PO (11:30)
[2023-10-18 16:32] LABS: Glucose Point of Care 163 mg/dL (70-110)
[2023-10-18] MEDS: HYDROcodone-acetaminophen 10-325 mg Tablet 1 TAB PO (20:54)
[2023-10-18] MEDS: ALPRAZolam 0.5 mg Tablet PO (20:55)
[2023-10-18 21:18] LABS: Glucose Point of Care 161 mg/dL (70-110)
[2023-10-19] VITALS (45 sets, daily range): BP systolic 111–156; BP diastolic 86–113; PULSE 88–118; RESP 13–31; TEMP 36.4–36.8; O2SAT 92–97
[2023-10-19 03:40] LABS: Basophils # 0.1 10^3/uL (0.0-0.1); Basophils % 0.7 %; Eosinophils # 0.1 10^3/uL (0.0-0.8); Eosinophils % 0.5 %; Hematocrit 49.6 % (36-47); Lymphocytes # 2.6 10^3/uL (0.8-4.8); Lymphocytes % 25.2 %; Mean Corpuscular HGB Conc 28.2 g/dL (30-55); Mean Corpuscular Hemoglobin 20.6 pg (27-33); Mean Corpuscular Volume 72.9 fl (85-98); Mean Platelet Volume 9.3 fL (7.4-10.4); Monocytes # 0.9 10^3/uL (0.2-0.9); Monocytes % 9.2 %; Neutrophils # 6.57 10^3/uL (1.8-7.7); Neutrophils % 63.9 %; Nucleated Red Blood Cells % 0 %; Platelet Count 497 10^3/cmm (157-399); Red Cell Distribution Width 20.9 % (12.1-15.1); White Blood Count 10.27 10^3/uL (3.29-11.43)
[2023-10-19 04:05] LABS: Anion Gap 15.7 (5-19); Blood Urea Nitrogen 16 mg/dL (8-23); Calcium 9.6 mg/dL (8.5-10.5); Carbon Dioxide 27 mmol/L (22-29); Chloride 101 mmol/L (98-107); Glomerular Filtration Rate 72.4 mL/min (90-130); Glucose 146 mg/dL (65-115); Osmolality Calculated 294 mOsm/kg (285-295); Potassium 3.7 mmol/L (3.5-5.1); Sodium 140 mmol/L (136-145)
[2023-10-19] MEDS: FUROsemide 10 mg/mL SDV 10mL 40 MG IVP (05:35)
--- NOTE | 2023-10-19 06:38 | XACV_ITS ---
Exam Room: 2 Ht: 617 cm Wt: 29 kg BSA: 1.90 m2 Gender: Female : 1960 Any Known Allergies: Other Exam Priority: Routine Procedure(s): Procedure Description: Diagnostic procedure Procedure Description: Left Heart Catheterization Procedure Description: Right Heart Catheterization Procedure Description: Left ventriculography Procedure Description: O2 saturation Procedure Description: Coronary Angiography Diagnostic Cath Status: Elective Diagnostic Findings * No significant disease noted in the Left Main, Left Anterior Descending, Right, or Circumflex coronary arteries. * Coronary angiography shows right dominance. Conclusions 1. No significant disease noted in the Left Main, Left Anterior Descending, Right, or Circumflex coronary arteries. 2. Non-ischemic cardiomyopathy. 3. Normal left and right sided cardiac pressures. 4. Severe left ventricular systolic dysfunction. Ejection fraction of 25%. Recommendations * Guideline directed medical therapy for heart failure. * Outpatient cardiology follow up in 4 weeks. Interventional RX Recommendation: medical therapy and/or counseling Diagnostic RX Recommendation: medical therapy and/or counseling Ventriculography Ejection Fraction: 25.0 % Pressures Phase:Rest AO : 114 / 102 ( 107 ) @ 8:02:00 AM LV : 153 / 5 / 9 @ 8:05:00 AM RV : 42 / 2 / 8 @ 7:55:00 AM PA : 43 / 19 ( 28 ) @ 7:54:00 AM RA : a wave = 11 v wave = 11 mean = 7 @ 7:56:00 AM PCW : a wave = 14 v wave = 15 mean = 13 @ 7:54:00 AM O2 Content Phase:Rest PA : O2 Content O2: 57.9 @ 8:05:00 AM Saturations Phase:Rest AO : 91 @ 8:02:00 AM PA : 58 @ 8:05:00 AM Cardiac Output Phase:Rest Tariq : 5 @ 8:26:33 AM Tariq Cardiac Index: 2 @ 8:26:33 AM Flow Phase:Rest Qp : 5 @ 8:26:33 AM Qs : 5 @ 8:26:33 AM Clinical Evaluation EBL: 5mL-10mL Procedural Details Procedure Consent Obtained. Pre-Procedure Time Out. Identified patient by full name and date of as verbalized by the patient/guarantor. Does the consent match the physician's order: Yes. Accurate & Complete Informed Consent: Yes. Inpatient/Outpatient History & Physical on Chart: Yes. If H&P is completed, is and addenduem needed: Yes; If yes, is the addendum complete: Yes. Visualize and Verify Site with Patient/Guarantor: N/A. Relevant Radiology Images available: Yes. The risks, benefits, and alternatives of sedation and/or procedure were discussed by physician. The patient agrees to continue. Procedure started. [facility] Clinical Fraility Score: 4: Vulnerable. Oncology Pharmacist Indications: LV Dysfunction. Chest Pain Symptom Assessment: Asymptomatic. Cardiovascular Instability: No. Correct patient, site and procedure confirmed by cath team. PERRLA. Strong, equal hand silo worker bilaterally. Lungs clear x 5 lobes. IV Site on Arrival: 20 gauge in the right anticubital to be used for RHC. A 20 gauge IV was started in the left anticubital using aseptic technique. IV Fluids: 0.9% NaCl at KVO. 0 mL infused prior to laborer car barn. Pre Procedural Pulses: bilateral radial was 2+. Pre Procedural Pulses: bilateral posterior tibial was Doppled. Pre Procedural Pulses: bilateral dorsalis pedis was Doppled. Patient on room air. Freed cath in place on arrival to the laborer car barn draining clear, yellow UOP. right groin was prepped with chloroprep then draped in the usual sterile fashion. right radial was prepped with chloroprep then draped in the usual sterile fashion. right brachial was prepped with chloroprep then draped in the usual sterile fashion. Physician notified. Baseline sample Acquired. HR: 105 BPM. Patient's spouse is on the way to the laborer car barn waiting room. Dr. Stauffer will update at the completion of the procedure. Equipment: 6F - Radial. Cardiac Cath Pack. ACIST Manifold Kit Model BT 2000. Heparinized Saline (2 units/mL), 1000 mL bag. 6 fr Terumo glidesheath x 2, Exchange J Wire. Physician arrived. Physician scrubbed in. Immediate Pre-Procedure Time Out. Correct Patient: Yes; Correct Procedure: Yes; Correct Site: Yes; Correct Patient Position: Yes; Correct Supplies: Yes; Dried Flammable Prep: Yes; Blood Products Available: NA. Lidocaine 1% infiltrated to the right brachial. [place] in. Oximetry samples were obtained. Normal venous range: 60-85%. Normal arterial range: 95-100%. Pressure measurements obtained. ABG drawn and sent with respiratory therapy. [place] out. Lidocaine 1% infiltrated to the right radial. Arterial access obtained. A 5 sinhala TIG catheter in over the exchange wire. Multiple views taken of left coronary artery. Catheter redirected to the RCA. Multiple views taken of right coronary artery. Catheter removed over the exchange wire. A 5 sinhala Angled Pig catheter in over the exchange wire. EDP Sample taken: LV 153/5,9; HR: 110 BPM; SpO2: 96%. LV gram performed in NI @ 10 mL/second for a total of 30 mL. No pullback performed. Catheter removed over the exchange wire. Dr. Stauffer scrubbed out. A Manual Compression was successful obtaining hemostatsis at the Right Brachial Vein insertion site. A TR Band was successful obtaining hemostatsis at the Right Radial artery insertion site. Post Procedure: Pulses reassessed and unchanged. PERRLA. Strong, equal hand silo worker bilaterally. No VTE prophylaxis required. Medication's Wasted: Nitro = 49.8 mg. Medication's Wasted: Heparin = 1000 Units. Medication's Wasted: Other = Fentanyl 75 mcg. Total IV fluids: 50 mL. Post-op diagnosis: Non ischemic cardiomyopathy. Complications: none. Vital chart was stopped. Estimated blood loss: 5mL-10mL. Responsiveness - Normal response to verbal stimuli; alert and oriented, PERRLA. Airway - Unaffected, no intervention required; spontaneous ventilation. Circulation: W/N/L, pulses unchanged. Nausea/Vomiting: No. Procedure completed. Patient transferred by bed to 1st floor. Access Site Site: Right Brachial Vein Sheath Size: 6 Fr Hemostasis Method: Manual Compression Hemostasis Success: Successful Site: Right Radial artery Sheath Size: 6 Fr Hemostasis Method: TR Band Hemostasis Success: Successful Procedure Medications Start: 7:48 AM Stop: 7:48 AM Medication: Versed Amount: 1 mg Route: I.V. Start: 7:49 AM Stop: 7:49 AM Medication: Fentanyl Amount: 25 mcg Route: I.V. Start: 7:59 AM Stop: 7:59 AM Medication: Nitrogylcerin Amount: 200 mcg Route: I.A. Start: 7:27 AM Stop: 7:27 AM Medication: Aspirin Amount: 325 mg Route: P.O. Start: 8:00 AM Stop: 8:00 AM Medication: Versed Amount: 1 mg Route: I.V. Start: 8:00 AM Stop: 8:00 AM Medication: Heparin Amount: 5000 units Route: I.V. I, the attending physician, have reviewed and verified all procedure medications. Yes, all medications given per verbal order History/Risk Factors Hypertension: No Dyslipidemia: Yes Peripheral Arterial Disease (PAD): No Myocardial Infarction (IN): No Obesity: Yes Renal Disease: No Tobacco Use: Never Prior Interventions PCI: No CABG: No Valve Surgery: No Report Signatures Finalized by Andres Stauffer MD on 10/25/2023 12:56 PM
[2023-10-19 06:42] LABS: Glucose Point of Care 113 mg/dL (70-110)
[2023-10-19] MEDS: enoxaparin 40 mg/0.4 mL Syringe SUBCUT (07:00)
--- NOTE | 2023-10-19 07:39 | W.PM.OPSUD ---
Surgery/Procedure H&P Update DATE OF PROCEDURE: October 19, 2023 DATE H&P PERFORMED: 10/17/23 H&P UPDATE INFORMATION: I have reviewed H&P completed within last 30 days, I have examined patient prior to procedure and No changes to prior documentation PREOP DIAGNOSIS: New onset congestive heart failure PRIMARY INDICATION FOR PROCEDURE: New onset congestive heart failure PLANNED PROCEDURE: Right heart cath+Left heart cath with possible percutaneous coronary intervention PATIENT REASSESSED PRIOR TO SEDATION, WITH NO CHANGE NOTED: Yes PHYSICAL EXAM: alert, oriented x 3, clear to auscultation bilaterally and regular rate & rhythm AIRWAY EVAL/ANESTHESIA PLAN: normal airway, ASA III, Local Anesthesia, Risks, benefits & alternatives of sedation and/or procedure discussed and Patient agrees to continue as planned ADDITIONAL INFORMATION: Moderate sedation
--- NOTE | 2023-10-19 08:10 | P.PN_ITS ---
Subjective 2 Subjective: Patient had right and left heart cath. Right heart cath shows normal right and left-sided cardiac pressures. Coronary angiogram does not show significant CAD. Nonischemic cardiomyopathy. Vitals/I&O/Wt Last Vital Signs Temp 97.6 F 10/19/23 04:00 Pulse 102 H 10/19/23 06:00 Resp 17 10/19/23 04:00 BP 142/86 10/19/23 04:00 Pulse Ox 94 10/19/23 04:00 O2 Del Method Nasal Cannula 10/19/23 04:00 O2 Flow Rate 2.5 10/17/23 20:24 10/18/23 10/19/23 10/19/23 22:59 06:59 14:59 Intake Total 720 / 1400 Output Total 1200 / 3200 150 / 3350 850 / 850 Balance -480 / -1800 -150 / -1950 -850 / -850 Weight last 48 hrs Weight 243 lb 7 oz Weight 245 lb 2 oz Physical Exam 2 Narrative: GENERAL: Patient is alert, awake and oriented x3. [] NECK: No jugular vein distension. [] HEENT: No cyanosis. No icterus. No pallor. [] HEART: Regular S1 and S2. Grade 3/6 systolic murmur LUNGS: Clear to auscultate bilaterally. [] CENTRAL NERVOUS SYSTEM: Grossly nonfocal. [] EXTREMITIES: Lower extremities with 2+ edema bilaterally. Urinary Catheter Management: Freed: Cath Placed During This Visit: no Data 10/19/23 03:27 10/19/23 03:27 A&P Assessment and plan (1) Congestive heart failure: Qualifiers: Heart failure chronicity: acute Heart failure type: unspecified Qualified Code(s): I50.9 - Heart failure, unspecified (2) Hyperlipidemia: (3) Type 2 diabetes mellitus: Plan Patient coronary angiogram does not reveal significant CAD. She has nonischemic cardiomyopathy. Losartan was started yesterday. We will uptitrated to 100 mg daily. We will also start metoprolol 50 mg twice daily. Low-sodium diet. Patient can be discharged home on 20 mg twice daily of p.o. Lasix. Thank you for involving us with care of this patient. Patient is stable to be discharged from cardiology standpoint. Close cardiology follow-up. Please call with questions. Attestations 2 Medical Necessity Statement*: Care expected to cross 2 midnights. Coding Level of Care Code Acute Code for g Fwd Diagnoses Congestive heart failure I50.9 Heart failure chronicity: acute Heart failure type: unspecified Hyperlipidemia E78.5 Type 2 diabetes mellitus E11.9
[2023-10-19 08:18] LABS: Blood Gas Allen Test Pos; Blood Gas Operator Identificat MONRO; Blood Gas Sample Site AO; Blood Gas Sample Type Not specified; Carboxyhemoglobin 1.7 %THgb (0.4-20.1); HGB O2 Sat 89.4 % (95-100); Methemoglobin 0.2 % (0.4-1.5); Oxygen Device ROOM AIR; Total Hemoglobin 14.7 g/dL (12-16)
[2023-10-19 08:21] LABS: Arterial Blood Gas Hematocrit 45.2 % (37-47); Blood Gas Allen Test Pos; Blood Gas Operator Identificat MONRO; Blood Gas Sample Site PA; Blood Gas Sample Type Not specified; Carboxyhemoglobin 1.7 %THgb (0.4-20.1); HGB O2 Sat 56.8 % (95-100); Methemoglobin 0.3 % (0.4-1.5); Oxygen Device ROOM AIR; Total Hemoglobin 14.7 g/dL (12-16)
[2023-10-19] MEDS: losartan 50 mg Tablet PO (10:37)
[2023-10-19] MEDS: metoprolol tartrate 50 mg Tablet PO (10:37)
[2023-10-19] MEDS: nystatin powder 15 gm Btl 1 APPLIC TOPICAL (10:38)
--- NOTE | 2023-10-19 11:21 | PM.DCS ---
Discharge Providers Date of Admission: 10/17/23 12:19 Date of Discharge: October 19, 2023 Attending Provider at Admission: Ramandeep Marquis MD Attending Provider at Discharge: Tamara Carter MD Primary Care Provider: Dank Connors DO Diagnoses at Discharge Discharge Diagnosis (1) Congestive heart failure: Status: Acute Qualifiers: Heart failure chronicity: acute Heart failure type: unspecified Qualified Code(s): I50.9 - Heart failure, unspecified (2) Hyperlipidemia: Status: Acute (3) Type 2 diabetes mellitus: Status: Acute Reason for Visit Reason for Visit: sob, temp pain when inhale Brief History: Jer Lacey is a 63 year old female does not have any history of hypertension or CHF presented with chief complaint orthopnea and PND. Patient is stating that her for her symptoms started few weeks ago when she started using more than 3 pillows, she started sleeping in a recliner, she does not have any history of congestive heart failure coronary disease or hypertension. She does snore a lot. She has not noticed any fever, chest pain, diarrhea, COVID-related symptoms. Because of worsening of her symptoms she decided to come to the hospital. In the ER she has been diagnosed new onset congestive heart failure received Lasix with good output, her tachypnea tachycardia improved after getting Versed for anxiety. Increase D-dimer, CT did not show PE it is consistent with pulmonary edema She will receive 80 mg of Lasix She is hypertensive blood pressure is 178/170 mmHg Nitroglycerin 1 inch has been applied Hospital Course Hospital Course Presented with new onset heart failure. Echo revealed EF 24%. Patient underwent cardiac cath which revealed nonocclusive disease. Patient given prescription for Jardiance at discharge. Discussed LifeVest with her however she does not want to stay in the hospital for LifeVest and would like to be discharged to set up as an outpatient. That has been ordered and she will follow-up with cardiology as an outpatient. Patient started on beta-char during hospital stay that she tolerated well. Also started Lasix 20 daily. During hospital stay she was diuresed more aggressively with IV Lasix. Patient was discharged home in stable condition at this time. Please see progress notes for further details. Physical Exam Narrative: Pleasant and cooperative Lungs clear to auscultation pt room air now S1, S2, no mrg Abdomen soft 1+ Lower extremity edema Pleasant and cooperative Urinary Catheter Management: Freed: Cath Placed During This Visit: no Discharge Data Studies Completed and Pending Completed Studies During Hospitalization Category Date Time Status CTA chest [CT angio chest PE protcl [id number]] Stat Cat Scan 10/16/23 23:03 Completed XR chest 1V portable [id number] Stat Exams 10/16/23 21:49 Completed CV. echo complete* [id number] Routine Ultrasound 10/17/23 02:32 Completed Pending at discharge Category Date Time Status COMMUNITY SERVICE DIRECTOR request for service Routine Exams 10/19/23 06:38 Taken ABG Coox Only Routine Lab 10/19/23 08:00 Results ABGCOOX [ABG Coox Only] Routine Lab 10/19/23 08:09 Results Radiology Impressions Chest X-Ray 10/16/23 21:49 IMPRESSION: Increased interstitial opacities present bilaterally with a diffuse bilateral interstitial pneumonia. Chest CTA 10/16/23 23:03 IMPRESSION: 1. There is no evidence for pulmonary emboli. 2. Mild prominence of the pulmonary vasculature, patchy ground-glass opacities and increased septal markings present hemithoraces, findings suggesting pulmonary edema. 3. Small right pleural effusion 4. Gallstones Laboratory Results WBC 10.27 10^3/uL (3.29-11.43) 10/19/23 03:27 RBC 6.80 10^6/uL (3.85-5.65) H 10/19/23 03:27 Hgb 14.00 g/dL (11.27-16.99) 10/19/23 03:27 Hct 49.6 % (36-47) H 10/19/23 03:27 MCV 72.9 fl (85-98) L 10/19/23 03:27 MCH 20.6 pg (27-33) L 10/19/23 03:27 MCHC 28.2 g/dL (30-55) L 10/19/23 03:27 RDW 20.9 % (12.1-15.1) H 10/19/23 03:27 Plt Count 497 10^3/cmm (157-399) H 10/19/23 03:27 MPV 9.3 fL (7.4-10.4) 10/19/23 03:27 Neut % (Auto) 63.9 % 10/19/23 03:27 Lymph % (Auto) 25.2 % 10/19/23 03:27 [place] % (Auto) 9.2 % 10/19/23 03:27 Eos % (Auto) 0.5 % 10/19/23 03:27 Baso % (Auto) 0.7 % 10/19/23 03:27 Neut # (Auto) 6.57 10^3/uL (1.8-7.7) 10/19/23 03:27 Lymph # (Auto) 2.6 10^3/uL (0.8-4.8) 10/19/23 03:27 [place] # (Auto) 0.9 10^3/uL (0.2-0.9) 10/19/23 03:27 Eos # (Auto) 0.1 10^3/uL (0.0-0.8) 10/19/23 03:27 Baso # (Auto) 0.1 10^3/uL (0.0-0.1) 10/19/23 03:27 Nucleated RBC % (auto) 0 % 10/19/23 03:27 Nucleated RBCs # 0.0 /100WBC 10/19/23 03:27 D-Dimer 2.55 ug/mLFEU (0-0.59) H 10/16/23 22:17 Specimen Type Not specified 10/19/23 08:09 Sample Site Pa 10/19/23 08:09 ABG pH 7.45 (7.35-7.45) 10/16/23 22:31 ABG pCO2 35.6 mmHg (35-45) 10/16/23 22:31 ABG pO2 64.9 mmHg (80.0-100.0) L 10/16/23 22:31 ABG HCO3 24.4 mmol/L (22-26) 10/16/23 22:31 ABG Base Excess 0.6 mmol/L (-2.0-2.0) 10/16/23 22:31 Leif Test Pos 10/19/23 08:09 Hematocrit 45.2 % (37-47) 10/19/23 08:09 Hgb O2 Saturation 56.8 % (95-100) L 10/19/23 08:09 Carboxyhemoglobin 1.7 %THgb (0.4-20.1) 10/19/23 08:09 Methemoglobin 0.3 % (0.4-1.5) L 10/19/23 08:09 Total Hemoglobin 14.7 g/dL (12-16) 10/19/23 08:09 O2 Delivery Device Room air 10/19/23 08:09 FiO2 21.0 % 10/19/23 08:09 Activities Director ID Maegan 10/19/23 08:09 Sodium 140 mmol/L (136-145) 10/19/23 03:27 Potassium 3.7 mmol/L (3.5-5.1) 10/19/23 03:27 Chloride 101 mmol/L (98-107) 10/19/23 03:27 Carbon Dioxide 27 mmol/L (22-29) 10/19/23 03:27 Anion Gap 15.7 (5-19) 10/19/23 03:27 BUN 16 mg/dL (8-23) 10/19/23 03:27 Creatinine 0.8 mg/dL (0.5-0.9) 10/19/23 03:27 GFR Calculation 72.4 mL/min (90-130) L 10/19/23 03:27 Glucose 146 mg/dL (65-115) H 10/19/23 03:27 POC Glucose 113 mg/dL (70-110) H 10/19/23 06:21 Estimat Average Glucose 128 10/17/23 02:40 Hemoglobin A1c 6.1 % (4.0-6.0) H 10/17/23 02:40 Calculated Osmolality 294 mOsm/kg (285-295) 10/19/23 03:27 Calcium 9.6 mg/dL (8.5-10.5) 10/19/23 03:27 Magnesium 1.8 mg/dL (1.7-2.3) 10/18/23 04:19 Total Bilirubin 1.1 mg/dL (0.15-1.2) 10/18/23 04:19 AST 16 U/L (0-32) 10/18/23 04:19 ALT 12 U/L (0-33) 10/18/23 04:19 Alkaline Phosphatase 104 U/L (35-105) 10/18/23 04:19 Troponin T Baseline 27 ng/L (0-10) H 10/16/23 22:17 Troponin T 120 Minute 24.97 ng/L (0-10) H 10/17/23 00:10 Delta Troponin T -2.03 ABS# (0-10) L 10/17/23 00:10 Troponin T Hi Sens 6Hr 30.05 ng/L (0-10) H 10/17/23 04:17 Troponin T Hi Sens 6Hr Delta 3.05 ng/L (0-12) 10/17/23 04:17 C-Reactive Protein 49.0 mg/L (0.0-4.9) H 10/17/23 04:17 NT-Pro-B Natriuret Pep 6561 pg/mL (0-125) H 10/16/23 22:17 Total Protein 7.3 g/dL (6.6-8.7) 10/18/23 04:19 Albumin 3.9 g/dL (3.5-5.2) 10/18/23 04:19 Globulin 3.4 g/dL (1.3-4.6) 10/18/23 04:19 TSH 3.43 uIU/mL (0.27-4.20) 10/17/23 02:40 Urine Opiates Screen Positive ng/mL (Negative) H 10/17/23 01:22 Ur Barbiturates Screen Negative ng/mL (Negative) 10/17/23 01:22 Ur Phencyclidine Scrn Negative ng/mL (Negative) 10/17/23 01:22 Ur Amphetamines Screen Negative ng/mL (Negative) 10/17/23 01:22 U Benzodiazepines Scrn Negative ng/mL (Negative) 10/17/23 01:22 Urine Cocaine Screen Negative ng/mL (Negative) 10/17/23 01:22 U Marijuana (THC) Screen Negative ng/mL (Negative) 10/17/23 01:22 Influenza Type A Ag negative (Negative) 10/16/23 22:12 Influenza Type B Ag negative (Negative) 10/16/23 22:12 SARS-CoV-2 Ag (Rapid) negative (Negative) 10/16/23 22:12 Vitals Last Vital Signs Temp 98.2 F 10/19/23 11:16 Pulse 106 H 10/19/23 10:45 Resp 19 H 10/19/23 10:45 BP 148/108 10/19/23 10:45 Pulse Ox 97 10/19/23 10:45 O2 Del Method Room Air 10/19/23 08:00 O2 Flow Rate 2.5 10/17/23 20:24 Discharge Plan Discharge Patient Disposition: Home Condition: Stable Prescriptions: New losartan 50 mg Tablet 100 mg PO DAILY Qty: 30 0RF metoprolol tartrate 50 mg Tablet 50 mg PO BID@0900,2100 Qty: 60 0RF Lasix 20 mg tablet 20 mg PO DAILY Qty: 30 0RF potassium chloride 8 mEq capsule, extended release 8 meq PO DAILY Qty: 30 0RF Jardiance 10 mg tablet 10 mg PO DAILY Qty: 30 0RF Continued Calcium 600 + D(3) 600 mg calcium- 200 unit capsule 1 cap PO BID estradiol 0.5 mg tablet 0.5 mg PO DAILY Qty: 30 12RF (DME) knee brace, hinged large See Rx Instructions .Route .MEDSUPPLY Qty: 1 0RF Rx Instructions: As directed duloxetine 60 mg capsule,delayed release(DR/EC) 60 mg PO BID Qty: 180 1RF hydrocodone-acetaminophen 10-325 mg tablet 1 tab PO Q8H PRN (Reason: pain) 30 Days Qty: 90 0RF Held metformin 500 mg tablet 500 mg PO BID Qty: 180 3RF Hold Instructions: Doctor's Order gabapentin 800 mg tablet 800 mg PO TID 30 Days Qty: 90 5RF Hold Instructions: hold till seen by pcp Discontinued amoxicillin-pot clavulanate 875-125 mg tablet 1 tab PO BID Qty: 20 0RF Back and Body Pain Reliever 500-32.5 mg tablet 1 tab PO Q6H PRN (Reason: Pain) Discharge Orders: Discharge Order (Routine); Ordered 10/19/23 Ordered By: Tamara Carter Other Ambulatory Orders: DME: Life Vest (Order) Timeframe: 1 Day Location: None Selected Ordered By: Tamara Carter CV. echo complete* [id number] (Routine) Timeframe: 3 Months Facility: [facility] - Location: Radiology Ordered By: Tamara Carter Referrals: Andres Stauffer M.D [Physician] - 1 month (We have notified your physician's clinic of the need for a follow-up appointment to be scheduled. If you have not heard from them within the next 2 business days, please call them directly. ) Tayla Sanchez FNP [Nurse Practitioner] - 7-10 days (We have notified your physician's clinic of the need for a follow-up appointment to be scheduled. If you have not heard from them within the next 2 business days, please call them directly. ) Dank Connors, [Primary Care Provider] - 4-7 days (We have notified your physician's clinic of the need for a follow-up appointment to be scheduled. If you have not heard from them within the next 2 business days, please call them directly. ) Discharge Diet: Cardiac Discharge Activity: Resume usual activity Patient Instructions: Metoprolol (By mouth) (Lopressor, Toprol XL), Furosemide (By mouth) (Lasix), Potassium Chloride (By mouth), Losartan (By mouth) (Cozaar), Empagliflozin (By mouth) (Jardiance), Low Sodium Diet, Heart Failure (DC), Heart Healthy Diet (DC), Fluid Restriction (DC), CHF Stoplight, Opioid Safety, Post Angiogram Home Care Instructions Discharge Attestations Time Spent in Discharge Care*: greater than 30 min Quality Metrics Clinical Quality Measures [ No reported AMI, CVA or VTE this stay] Coding Level of Care Code Acute Code for Chg Fwd Diagnoses Congestive heart failure I50.9 Heart failure chronicity: acute Heart failure type: unspecified Hyperlipidemia E78.5 Type 2 diabetes mellitus E11.9
[2023-10-19 12:56] LABS: Glucose Point of Care 223 mg/dL (70-110)
--- NOTE | 2023-10-19 14:55 | PC.NURSE ---
11am-notified dr to get her discharge meds written due to pharmacies are close on holiday and until 5 pm at [facility].
--- NOTE | 2023-10-19 15:00 | PC.NURSE ---
discharge papers and instructions provided to pt. educated pt on her new meds such as metoprolol, lasix, losartan, hold meds such as her metformin and gabapentin, d/c meds. provided pt with a life vest brochure.
--- NOTE | 2023-10-19 15:01 | PC.NURSE ---
1245-notified freight adjuster that hospitalist ordered life vest. all paperworks are faxed to [employer] and faxed to the signs and displays sales representative. have not heard any response yet due to holiday season and weekend. Pt would like to go home today. freight adjuster rounded at bedside this afternoon and informed pt and on the results of her right and left heart cath again, education on low salt, fluid restriction, okay for her to go home today, w/ life vest will be fitted sometime outpatient. notified hospitalist.
--- NOTE | 2023-12-20 10:18 | PC.NURSE ---
THIS PERSON CALLED TO LET THEM KNOW THEY HAD MEDICATIONS THAT WERE LEFT WHEN PATIENT DISCHARGED. NO ONE ANSWERED SO LEFT A VOICEMAIL FOR PATIENT TO CALL US BACK.
== END 2023-10-19 15:30 | disposition home or self-care (01) ==
LOC: ER 10-17 00:27 → MEDSURG 10-17 02:00 → CSU 10-19 11:22
PROVIDERS: Internal Medicine; Admitting Provider Internal Medicine; Emergency Provider Nurse Practitioner Family; PCP Family Medicine; Visit Provider Internal Medicine
DX: I50.9 Heart failure, unspecified (principal); E78.5 Hyperlipidemia, unspecified; E66.9 Obesity, unspecified; Z68.41 Body mass index [BMI] 40.0-44.9, adult; E66.01 Morbid (severe) obesity due to excess calories; Z68.35 Body mass index [BMI] 35.0-35.9, adult; R06.83 Snoring; E11.69 Type 2 diabetes mellitus with other specified complication; Z82.49 Family history of ischemic heart disease and other diseases of the circulatory system
CPT/HCPCS: 36415; 36416; 36600; 51702; 71045; 71275; 80048; 80053; 80306; 82803; 82810; 82962; 83036; 83735; 83880; 84443; 84484; 85025; 85378; 86140; 87426; 87804; 93005; 93306; 93460; 94640; 96367; 96372; 96374; 96375; 96376; 99152; 99285; C1751; C1769; C1887; C1894; G0378; J1200; J1644; J1650; J1940; J2250; J3010; J3490; J7030; Q9967

== ENCOUNTER → 2023-11-06 11:34 | Outpatient (BNVA) | payer MEDICARE, SELFPAY | PROVIDERS: PCP Family Medicine; Visit Provider Family Medicine | DX: I50.9 Heart failure, unspecified (principal) | CPT/HCPCS: 80053 ==

== ENCOUNTER 2023-12-29 14:00 | Outpatient (CLI) | payer MEDICARE, SELFPAY ==
--- NOTE | 2023-12-29 14:09 | XRR_ITS ---
PROCEDURE INFORMATION: Exam: XR Right Shoulder Exam date and time: 12/29/2023 2:19 PM Age: 63 years old Clinical indication: Injury or trauma; Fall; Blunt trauma (contusions or hematomas); Shoulder; Right; Additional info: M25.519 - pain in unspecified shoulder TECHNIQUE: Imaging protocol: Radiologic exam of the right shoulder. Views: 2 or more views. COMPARISON: CT angio chest PE protcl [id number] 10/16/2023 11:36 PM FINDINGS: Bones/joints: Anteroinferior dislocation of the right humeral head relative to the glenoid. A large Hill-Sachs deformity is present. Mild chronic DJD at the AC joint. There is a prominent subacromial spur. Soft tissues: Tiny linear calcification projecting lateral to the glenoid on AP view may represent a tiny fracture fragment.. XR/XR shoulder RT min 2V* [id number] IMPRESSION: Right glenohumeral dislocation with prominent impaction of the posterior humeral head on the anteroinferior glenoid rim.
== END 2023-12-29 14:01 | disposition home or self-care (01) ==
LOC: RAD 14:03
PROVIDERS: PCP Family Medicine; Visit Provider Family Medicine
DX: M25.519 Pain in unspecified shoulder (principal); S43.024A Posterior dislocation of right humerus, initial encounter; X58.XXXA Exposure to other specified factors, initial encounter
CPT/HCPCS: 73030

== ENCOUNTER 2023-12-30 17:58 | Emergency (ER) | payer MEDICARE, SELFPAY ==
--- NOTE | 2023-12-30 | XRR_ITS ---
PROCEDURE INFORMATION: Exam: XR Left Shoulder Exam date and time: 12/30/2023 7:15 PM Age: 63 years old Clinical indication: Injury or trauma; Other: Post reduction TECHNIQUE: Imaging protocol: Radiologic exam of the left shoulder. Views: 2 or more views. COMPARISON: Right shoulder plain films dated December 30, 2023, 6:16 p.m.. FINDINGS: Bones/joints: Interval reduction of right shoulder dislocation. Soft tissues: Normal. IMPRESSION: Interval reduction of right shoulder dislocation. [facility]
--- NOTE | 2023-12-30 18:07 | XRR_ITS ---
PROCEDURE INFORMATION: Exam: XR Right Shoulder Exam date and time: 12/30/2023 6:11 PM Age: 63 years old Clinical indication: Injury or trauma; Fall; Blunt trauma (contusions or hematomas); Shoulder; Right TECHNIQUE: Imaging protocol: Radiologic exam of the right shoulder. Views: 2 or more views. COMPARISON: CR XR shoulder RT min 2V* [id number] 12/29/2023 2:19 PM FINDINGS: Bones/joints: Stable right anterior shoulder dislocation. Stable Hill-Sachs deformity over the posterior lateral humeral head. Soft tissues: Normal. Other findings: Metallic postoperative changes over the thoracolumbar spine with metallic artifact. XR/XR shoulder RT min 2V* [id number] IMPRESSION: 1. Stable right anterior shoulder dislocation. 2. Stable Hill-Sachs deformity over the posterior lateral humeral head.
[2023-12-30 18:15] VITALS: BP 137/81; PULSE 105; RESP 18; TEMP 36.7; O2SAT 94; BMI 38.9
--- NOTE | 2023-12-30 18:28 | ED_ITS ---
HPI - Extremity Problem General: Chief complaint: Extremity Injury, Upper Stated complaint: Fall, Right shoulder pain Time Seen by Provider: 12/30/23 18:17 Source: patient Mode of arrival: ambulatory Limitations: no limitations History of Present Illness: 63-year-old female states she had trippe d and fell on Friday she states she landed on her right shoulder been having right shoulder pain since then and difficulty moving her arm she was seen in clinic yesterday had an x-ray x-ray shows the shoulder to be dislocated. She has movement in her hand she rates her pain a 3 out of 10 currently denies hitting her head denies any neck pain she is ambulatory since event Associated symptoms: Deny chest pain, fever(s) or rash Review of Systems Const: Denies: fever(s), chills, body aches or change in appetite ENMT: Denies: throat pain or dental pain Card: Denies: chest pain Resp: Denies: dyspnea GI: Denies: abdominal pain, nausea, vomiting or diarrhea Musc: Reports: extremity pain; Denies: neck pain or back pain Skin/Breast: Denies: rash Neuro: Denies: headache(s) PFSH ED PFSH: Medical History Yeast vaginitis Recurrent UTI Hyperlipidemia Type 2 diabetes mellitus Chronic back pain Surgical History Status post left knee replacement History of back surgery Most recent in 2019. Reports multiple back surgeries S/P laparoscopic assisted vaginal hysterectomy (LAVH) (~1991) With bladder tie up . Performed by Dr. Scott at [facility] in [place], [place]. Family History Father , AT AGE 48 CAD (coronary artery disease) Heart disease Mother , AT AGE 48 Cancer Lymphatic cancer Social History Smoking and tobacco/nicotine status: never used tobacco/nicotine Alcohol intake: current Alcohol intake frequency: holidays/special occasions only Substance/Drug Use: never Marital status: Current occupational status: retired Physical Exam Const: COMMON NORMALS: no acute distress, patient oriented x3 and healthy appearing HENMT: COMMON NORMALS: normocephalic and atraumatic HEAD & SCALP: normocep halic and atraumatic Eye: COMMON NORMALS: conjunctivae normal CONJUNCTIVA: Yes conjunctivae normal Neck/C-Spine: COMMON NORMALS: full ROM and supple CERVICAL SPINE: No Cervical spine tenderness Chest: COMMONS NORMALS: normal inspection of the chest Resp: COMMON NORMALS: normal respiratory effort Cardio: COMMON NORMALS: regular rate, regular rhythm and No murmurs present (Cardio) RATE: regular rate RHYTHM: regular rhythm Extremity: NARRATIVE EXTREMITY EXAM: Obvious deformity to right shoulder she has distal pulses sensation intact in the right arm Neuro: COMMON NORMALS: patient oriented x3, moves all extremities and no focal motor deficits Psych: COMMON NORMALS: mental status grossly normal, Normal thought process present and cooperative THOUGHT PROCESS: Normal thought process present Skin: COMMON NORMALS: no rashes or lesions noted and no wounds GENERAL SKIN EXAM: no rashes or lesions noted Procedures Orthopedic Joint Reduction Joint #1: Time Out Performed: Yes Side: right Joint Reduction Location: shoulder Analgesia: procedural sedation Shoulder Technique Used (if applicable): traction/counter-traction Post-reduction neuro exam: intact Post-reduction vascular: intact Post Reduction X-Ray Obtained: Yes Splint Applied: Yes Patient Tolerated Procedure: well Procedural Sedation Indication: fracture/dislocation reduction ASA Class: I Time of Last PO Intake: 14:00 IV Propofol dose (mg): 60 Patient Tolerated Procedure: well Complications: none Interventions: oxygen applied Course Vital Signs: Vital signs: Vital Signs Temperature 98.0 F 12/30/23 18:15 Pulse Rate 97 12/30/23 19:13 Respiratory Rate 18 12/30/23 19:13 Blood Pressure 162/124 12/30/23 19:13 Pulse Oximetry 100 12/30/23 19:00 Oxygen Delivery Me thod Nasal Cannula 12/30/23 19:13 Oxygen Flow Rate 3 12/30/23 19:00 MDM - Extremity (Nontraumatic) Medical Decision Making Patient presents here with shoulder dislocation was able to reduce it in the ER patient is placed in a shoulder immobilizer will get her follow-up with orthopedics she is to follow-up next week she stable for discharge Medical Records I reviewed the patient's medical records. All radiology interpretation(s) finalized by discharge Discharge Plan Discharge Patient Disposition: Home Clinical Impression: Closed dislocation of right shoulder Qualifiers: Encounter type: initial encounter Qualified Code(s): S43.004A - Unspecified dislocation of right shoulder joint, initial encounter Condition: Stable Prescriptions: New hydrocodone-acetaminophen 5-325 mg tablet 1 tab PO Q6H PRN (Reason: pain) Qty: 14 0RF No Action Calcium 600 + D(3) 600 mg calcium- 200 unit capsule 1 cap PO BID estradiol 0.5 mg tablet 0.5 mg PO DAILY Qty: 30 12RF (DME) knee brace, hinged large See Rx Instructions .Route .MEDSUPPLY Qty: 1 0RF Rx Instructions: As directed fluconazole 150 mg tablet 150 mg PO Q3D 0 Days Qty: 2 0RF gabapentin 800 mg tablet 800 mg PO TID 30 Days Qty: 90 5RF Hold Instructions: hold till seen by pcp duloxetine 60 mg capsule,delayed release(DR/EC) 60 mg PO BID Qty: 180 1RF nystatin 100,000 unit/gram ointment 1 applic topical QID Qty: 30 0RF metformin 500 mg tablet 500 mg PO BID Qty: 180 3RF Hold Instructions: resume in 48 hours metoprolol tartrate 50 mg tablet 50 mg PO BID@0900,2100 Qty: 180 3RF hydrocodone-acetaminophen 10-325 mg tablet 1 tab PO Q8H PRN (Reason: pain) 30 Days Qty: 90 0RF losartan 50 mg Tablet 100 mg PO DAILY Qty: 30 0RF Lasix 20 mg tablet 20 mg PO DAILY Qty: 30 0RF potassium chloride 8 mEq capsule, extended release 8 meq PO DAILY Qty: 30 0RF Jardiance 10 mg tablet 10 mg PO DAILY Qty: 30 0RF Discharge Orders: Discharge ED (Routine); Ordered 12/30/23 Ordered By: Linda Patterson Referrals: Vinayak Dennis DO [Physician] - 1-3 days Dank Connors DO [Primary Care Provider] - Discharge Diet: Advance as tolerated Discharge Activity: Resume usual activity Patient Instructions: Shoulder Dislocation (ED), Closed Reduction (ED), Opioid Safety Coding 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
[2023-12-30] MEDS: ondansetron 2 mg/ML SDV 2 mL 4 MG IVP (18:53)
[2023-12-30 18:55] VITALS: RESP 18; O2SAT 100
[2023-12-30] MEDS: morphine 4 mg/mL SDV 1 mL IVP (18:55)
--- NOTE | 2023-12-30 18:59 | XRR_ITS ---
PROCEDURE INFORMATION: Exam: XR Left Shoulder Exam date and time: 12/30/2023 7:15 PM Age: 63 years old Clinical indication: Injury or trauma; Other: Post reduction TECHNIQUE: Imaging protocol: Radiologic exam of the left shoulder. Views: 2 or more views. COMPARISON: Right shoulder plain films dated December 30, 2023, 6:16 p.m.. FINDINGS: Bones/joints: Interval reduction of right shoulder dislocation. Soft tissues: Normal.
[2023-12-30 19:00] VITALS: BP 162/124; PULSE 91; RESP 18; O2SAT 100
[2023-12-30 19:13] VITALS: BP 162/124; PULSE 97; RESP 18; O2SAT 99
[2023-12-30] MEDS: propofol 10 mg/mL SDV 20 mL 100 MG IVP (19:14)
--- NOTE | 2023-12-30 19:21 | PC.NURSE ---
140mL of Propofol wasted with Delfina SALAZAR in the pyxis.
[2023-12-30 20:08] VITALS: BP 160/84; PULSE 99; RESP 16; O2SAT 99
--- NOTE | 2023-12-31 07:32 | DCPLANNER ---
Message sent to [facility] to follow up
== END 2023-12-30 19:34 | disposition home or self-care (01) ==
PROVIDERS: Emergency Provider Emergency Medicine; PCP Family Medicine
DX: S43.004A Unspecified dislocation of right shoulder joint, initial encounter (principal); E78.5 Hyperlipidemia, unspecified; E11.9 Type 2 diabetes mellitus without complications; W01.0XXA Fall on same level from slipping, tripping and stumbling without subsequent striking against object, initial encounter
CPT/HCPCS: 23650; 73020; 73030; 96374; 96375; 99152; 99285; J2270; J2405; J2704

== ENCOUNTER 2024-02-14 23:30 | Emergency (ER) | payer MEDICARE, SELFPAY ==
[2024-02-14 23:33] VITALS: BP 173/88; PULSE 90; RESP 20; TEMP 36.6; O2SAT 100; BMI 37.8
--- NOTE | 2024-02-14 23:40 | XRR_ITS ---
PROCEDURE INFORMATION: Exam: XR Right Shoulder Exam date and time: 02/15/2024 12:56 AM Age: 63 years old Clinical indication: Right; Patient HX: C/O RT shoulder pain. History of recurrent shoulder dislocation. TECHNIQUE: Imaging protocol: Radiologic exam of the right shoulder. Views: 2 or more views. COMPARISON: CR XR shoulder RT 1V [id number] 12/30/2023 7:15 PM FINDINGS: Bones/joints: Chronic Hill-Sachs fracture deformity of the posterolateral humeral head redemonstrated. Moderate severity glenohumeral joint degenerative changes. Distal acromion osseous spurring. No dislocation is identified. There is likely anterior glenohumeral joint subluxation. Soft tissues: Normal. XR/XR shoulder RT min 2V* [id number] IMPRESSION: 1. Right glenohumeral joint anterior subluxation without kika dislocation. 2. No definite acute fracture. Pre-existing Hill-Sachs fracture deformity.
--- NOTE | 2024-02-15 01:40 | W.ED.EXTPRO ---
HPI - Extremity Problem General: Chief complaint: Extremity Injury, Upper Stated complaint: Rt Shoulder Pain Time Seen by Provider: 02/15/24 00:59 History of Present Illness: Patient presents to the ER with complaints of shoulder popping out 3 different times today. Patient said this makes the fifth time that her shoulders been dislocated. Patient did states she felt a pop back again in the waiting room but still to be evaluated in see if there is anything that can be done to stop this from happening again. Review of Systems General: Reports: 10 or more systems reviewed and unremarkable except in HPI and below PFSH ED PFSH: Medical History Yeast vaginitis Recurrent UTI Hyperlipidemia Type 2 diabetes mellitus Chronic back pain Surgical History Status post left knee replacement History of back surgery Most recent in 2019. Reports multiple back surgeries S/P laparoscopic assisted vaginal hysterectomy (LAVH) (~1991) With bladder tie up . Performed by Dr. Scott at [facility] in [place], [place]. Family History Father , AT AGE 48 CAD (coronary artery disease) Heart disease Mother , AT AGE 48 Cancer Lymphatic cancer Social History Smoking and tobacco/nicotine status: never used tobacco/nicotine Alcohol intake: current Alcohol intake frequency: holidays/special occasions only Substance/Drug Use: never Marital status: Current occupational status: retired Physical Exam Const: COMMON NORMALS: no acute distress, average body habitus, patient oriented x3, no limitations, healthy appearing, alert and well nourished HENMT: COMMON NORMALS: normocephalic, atraumatic, hearing grossly normal bilaterally, external ears normal, Normal external nose present, moist oral mucous membranes and oropharynx normal HEAD & SCALP: normocephalic and atraumatic NOSE: Normal external nose present EXTERNAL EAR: Yes external ears normal Neck/C-Spine: COMMON NORMALS: no JVD Chest: COMMONS NORMALS: normal inspection of the chest and normal palpation of entire chest wall Resp: COMMON NORMALS: normal respiratory effort, No retractions, No use of accessory muscles and clear to auscultation bilaterally AUSCULTATION: clear to auscultation bilaterally Cardio: COMMON NORMALS: no JVD, regular rate, regular rhythm, S1 normal heart sound present, S2 normal heart sound present, No gallops present (Cardio), No clicks present (Cardio), No murmurs present (Cardio) and No rub (Cardio) RATE: regular rate RHYTHM: regular rhythm HEART SOUNDS: S1 normal heart sound present and S2 normal heart sound present GI: COMMON NORMALS: Normal to inspection, nondistended, normoactive bowel sounds present, Soft to palpation, non-tender, No hepatosplenomegaly present and no masses PALPATION: Yes Soft to palpation and Yes No hepatosplenomegaly present Neuro: COMMON NORMALS: patient oriented x3 SENSORIUM/ORIENTATION: Yes alert Course Vital Signs: Vital signs: Vital Signs Temperature 98 F 02/14/24 23:33 Pulse Rate 90 02/14/24 23:33 Respiratory Rate 20 H 02/14/24 23:33 Blood Pressure 173/88 02/14/24 23:33 Pulse Oximetry 100 02/14/24 23:33 MDM - Extremity (Nontraumatic) Medical Decision Making X-ray was obtained which showed anterior subluxation without kika dislocation, these results was discussed with the patient. Patient be placed in a sling immobilizer and referred back to Ortho for definitive treatment. Differential Diagnosis Unlikely herpes zoster, gout, cellulitis, superficial thrombophlebitis, deep venous thrombosis of upper extremity, lower extremity edema or deep vein thrombosis of lower extremity Medical Records I reviewed the patient's medical records. Lab Data I reviewed the patient's lab results. Radiology Impressions Shoulder X-Ray 02/14/24 23:40 IMPRESSION: 1. Right glenohumeral joint anterior subluxation without kika dislocation. 2. No definite acute fracture. Pre-existing Hill-Sachs fracture deformity. All radiology interpretation(s) finalized by discharge Discharge Plan Discharge Patient Disposition: Home Clinical Impression: Anterior subluxation of shoulder Qualifiers: Encounter type: initial encounter Laterality: right Qualified Code(s): S43.011A - Anterior subluxation of right humerus, initial encounter Condition: Stable Prescriptions: No Action Calcium 600 + D(3) 600 mg calcium- 200 unit capsule 1 cap PO BID estradiol 0.5 mg tablet 0.5 mg PO DAILY Qty: 30 12RF (DME) knee brace, hinged large See Rx Instructions .Route .MEDSUPPLY Qty: 1 0RF Rx Instructions: As directed amoxicillin 875 mg tablet 875 mg PO BID 7 Days Qty: 14 0RF duloxetine 60 mg capsule,delayed release(DR/EC) 60 mg PO BID Qty: 180 1RF nystatin 100,000 unit/gram ointment 1 applic topical QID Qty: 30 0RF metformin 500 mg tablet 500 mg PO BID Qty: 180 3RF Hold Instructions: resume in 48 hours metoprolol tartrate 50 mg tablet 50 mg PO BID@0900,2100 Qty: 180 3RF fluconazole 150 mg tablet 150 mg PO Q3D 0 Days Qty: 2 0RF hydrocodone-acetaminophen 10-325 mg tablet 1 tab PO Q8H PRN (Reason: pain) 30 Days Qty: 90 0RF gabapentin 800 mg tablet 800 mg PO TID 30 Days Qty: 90 5RF Hold Instructions: hold till seen by pcp hydrocodone-acetaminophen 5-325 mg tablet 1 tab PO Q6H PRN (Reason: pain) Qty: 14 0RF losartan 50 mg Tablet 100 mg PO DAILY Qty: 30 0RF Lasix 20 mg tablet 20 mg PO DAILY Qty: 30 0RF potassium chloride 8 mEq capsule, extended release 8 meq PO DAILY Qty: 30 0RF Jardiance 10 mg tablet 10 mg PO DAILY Qty: 30 0RF Discharge Orders: Discharge ED (Routine); Ordered 02/15/24 Ordered By: Jacob Dsouza Referrals: Dank Connors DO [Primary Care Provider] - 1 week Patient Instructions: Shoulder Pain (ED), Shoulder Immobilizer (ED) Activity Restrictions/Additional Instructions: The x-ray confirmed your shoulder is not dislocated at this time. The more often your shoulder dislocates the easier will be to become dislocated. You have been referred to orthopedics for definitive treatment for this. Please wear your shoulder immobilizer at all times until seen by them. 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
[2024-02-15 01:57] VITALS: PULSE 88; RESP 18; O2SAT 97
--- NOTE | 2024-02-16 07:25 | DCPLANNER ---
Message sent to ortho for RT dislocation of shoulder
== END 2024-02-15 01:55 | disposition home or self-care (01) ==
PROVIDERS: Emergency Provider Emergency Medicine; PCP Family Medicine
DX: S43.011A Anterior subluxation of right humerus, initial encounter (principal); Z79.84 Long term (current) use of oral hypoglycemic drugs; E78.5 Hyperlipidemia, unspecified; E11.9 Type 2 diabetes mellitus without complications; X58.XXXA Exposure to other specified factors, initial encounter
CPT/HCPCS: 73030; 99283

== ENCOUNTER → 2024-03-09 10:29 | Outpatient (BNVA) | payer MEDICARE, SELFPAY | PROVIDERS: PCP Family Medicine; Visit Provider Student in an Organized Health Care Education/Training Program | DX: M25.311 Other instability, right shoulder | CPT/HCPCS: 99203 ==

== ENCOUNTER 2024-06-30 09:20 | Outpatient (RCR) | payer MEDICARE, SELFPAY | END 2024-07-26 23:59 | disposition home or self-care (01) | LOC: SPT 09:20 | PROVIDERS: Visit Provider Nurse Practitioner Adult Health | DX: Z47.1 Aftercare following joint replacement surgery (principal); Z96.611 Presence of right artificial shoulder joint | CPT/HCPCS: 97110; 97162; 97530 ==

== ENCOUNTER 2024-07-27 06:00 | Outpatient (RCR) | payer MEDICARE, SELFPAY | END 2024-08-26 23:59 | disposition home or self-care (01) | LOC: SPT 06:00 | PROVIDERS: Visit Provider Nurse Practitioner Adult Health | DX: Z47.1 Aftercare following joint replacement surgery (principal); Z96.611 Presence of right artificial shoulder joint; Z96.642 Presence of left artificial hip joint | CPT/HCPCS: 97110; 97530 ==

== ENCOUNTER 2024-08-27 06:00 | Outpatient (RCR) | payer MEDICARE, SELFPAY | END 2024-09-25 23:59 | disposition home or self-care (01) | LOC: SPT 06:00 | PROVIDERS: Visit Provider Nurse Practitioner Adult Health | DX: Z47.1 Aftercare following joint replacement surgery (principal); Z96.611 Presence of right artificial shoulder joint | CPT/HCPCS: 97110; 97116; 97164; 97530 ==

== ENCOUNTER 2024-09-26 06:00 | Outpatient (RCR) | payer MEDICARE, SELFPAY | END 2024-10-12 23:59 | disposition home or self-care (01) | LOC: SPT 06:00 | PROVIDERS: Visit Provider Nurse Practitioner Adult Health | DX: Z47.1 Aftercare following joint replacement surgery (principal); Z96.611 Presence of right artificial shoulder joint | CPT/HCPCS: 97110; 97530 ==

== ENCOUNTER 2024-11-30 14:45 | Outpatient (CLI) | payer MEDICARE, SELFPAY ==
--- NOTE | 2024-11-30 15:45 | USCV_ITS ---
Jer Lacey Age: 64 Gender: F : 1960 Exam Date: 11/30/2024 14:53 Ordering Phys: Dank Connors DO Technologist: [employer] Exam Location[place] [facility] [place] Indication: LOCALIZED EDEMA HISTORY: Lower extremity edema. TDS STUDY DUE TO BODY HABITUS PROCEDURES: Venous duplex imaging was performed in only the left lower extremity. The following venous structures were evaluated: common femoral vein, profunda vein, proximal portion of the greater saphenous vein, superficial femoral vein, and the popliteal vein. In addition, the posterior tibial and peroneal trunk were evaluated. FINDINGS: Normal 2-D Doppler and augmentation and compressibility throughout the lower extremity venous structures. Additional imaging through the proximal calf veins also reveals no thrombus. Limited evaluation of the greater saphenous vein is patent with no thrombus. CONCLUSIONS No DVT left lower extremity. Limited by body habitus. Dr. Patty Rivera DO (Electronically Signed) Final Date: 30 November 2024 15:37 S
== END 2024-11-30 14:46 | disposition home or self-care (01) ==
LOC: RAD 14:48
PROVIDERS: PCP Family Medicine; Visit Provider Family Medicine
DX: R60.0 Localized edema (principal); D64.9 Anemia, unspecified
CPT/HCPCS: 80053; 85025; 85379; 93971

== ENCOUNTER 2024-12-10 13:10 | Outpatient (CLI) | payer MEDICARE, SELFPAY ==
--- NOTE | 2024-12-10 13:30 | CT_ITS ---
WS: [id number] CT ABDOMEN AND PELVIS WITH CONTRAST HISTORY: R60.0 - Localized edema TECHNIQUE: Imaging performed of the abdomen and pelvis with IV contrast. Single phase imaging of the abdomen. Coronal and sagittal reformats are submitted. All CT scans at [facility] use at least one of these dose optimization techniques: automated exposure control; mA and/or kV adjustment per patient size (includes targeted exams where dose is matched to clinical indication); or iterative reconstruction. IV CONTRAST: Omnipaque 350; 100 mL IV. Oral contrast: Yes. DLP: 946.00 mGy.cm COMPARISON: 06/20/2008 Lower thorax: Lung bases are clear. Heart is normal size. No hiatal hernia. Liver/biliary system: Mild hepatomegaly. No intrahepatic duct dilatation. Normal portal vein. Gallbladder: Normally distended with numerous stones. No acute cholecystitis. Pancreas: Normal size pancreas and pancreatic duct. No adjacent inflammation. Spleen: Normal size spleen. No mass or infarct. Adrenal glands: Normal. Right kidney: Normal. Left kidney: Normal. Aorta: Mild atherosclerosis with no aneurysm. Mesenteric arteries are normally enhancing. Lymphadenopathy: None. Free fluid: None. GI tract: Stomach is distended with oral contrast. No small bowel obstruction. No GI tract obstruction. Moderate constipation. No diverticular disease. Abdominal wall: Fat containing umbilical hernia. Pelvis: No free fluid or adenopathy within the pelvis. Bones: Prior LEFT hip arthroplasty. Fusion hardware in the lower thoracic and lumbar spines. CT/CT abdomen pelvis w con* [id number] IMPRESSION: 1. Cholelithiasis without evidence for acute cholecystitis. 2. Mild hepatomegaly. 3. Constipation. No obstructing lesion identified by CT. 4. No adenopathy or ascites.
[2024-12-10] MEDS: iohexol 350 mg/mL 500 mL Btl (per mL) PO (14:01)
[2024-12-10] MEDS: iohexol 350 mg/mL 500 mL Btl (per mL) IV (14:42)
== END 2024-12-10 13:11 | disposition home or self-care (01) ==
PROVIDERS: PCP Family Medicine; Visit Provider Family Medicine
DX: R60.0 Localized edema (principal); K57.92 Diverticulitis of intestine, part unspecified, without perforation or abscess without bleeding; K80.20 Calculus of gallbladder without cholecystitis without obstruction; R16.0 Hepatomegaly, not elsewhere classified; K59.00 Constipation, unspecified; I70.0 Atherosclerosis of aorta; K42.9 Umbilical hernia without obstruction or gangrene; Z98.890 Other specified postprocedural states; Z98.1 Arthrodesis status
CPT/HCPCS: 74177

== ENCOUNTER → 2025-01-13 12:43 | Outpatient (BNVA) | payer MEDICARE, SELFPAY | PROVIDERS: PCP Family Medicine; Referring Provider Family Medicine; Visit Provider Student in an Organized Health Care Education/Training Program | DX: Z12.11 Encounter for screening for malignant neoplasm of colon (principal) | CPT/HCPCS: 99024; 99204 ==